=== PATIENT | male | born 1955 | race Caucasian/White ===

== ENCOUNTER 2023-12-03 19:41 | Inpatient (IN) | payer MEDICARE, OTHER, SELFPAY ==
[2023-12-03] VITALS (10 sets, daily range): BP systolic 118–143; BP diastolic 61–77; BMI 35.6; BMI 35.1
--- NOTE | 2023-12-03 15:20 | ED.GENMED ---
History of Present Illness
General
Chief Complaint: Musculo-Skeletal Complaint
Time Seen by Provider: 12/03/23 15:03
Travel History
Have you had any contact with someone who has COVID-19?: No
Do you have any symptoms of coronavirus? Fever > 100 degrees, chills, cough, shortness of breath, sore throat, loss of taste or smell, muscle aches, or headache?: No
History of Present Illness
History of Present Illness:
68-year-old male with history of diet-controlled diabetes, atrial fibrillation on Eliquis, and hypertension presents to the emergency department for evaluation of a nonhealing wound to the left second toe. Has had a wound to both the dorsal and
plantar surfaces for several months, saw his fisheries specialist today and was referred to the emergency department for potential surgical management. Patient reports exquisite pain however he does have a history of lower extremity neuropathy.
Denies any fevers or chills. Was on an antibiotic recently, uncertain what this was.
Past History
Past History
ED Past Medical History: Arrthythmia, GERD, HTN, NIDDM and Other (diverticulitis)
ED Past Surgical History: Appendectomy and Bowel resection (Sigmoid resection)
Patient has exhibited threatening behavior?: No
Social History
Tobacco: Non-smoker
Alcohol: Daily (Vodka 2-3 shots)
Drug: None
Personal:
Living: with family
Employment: Employed
Family History
Family History: Other (Nonsignificant)
Review of Systems
Review of Systems
Allergies reviewed?: Yes
All Other Systems: ROS reviewed and negative except as documented in HPI and ROS
Phy Exam
Physical Exam
Physical Exam:
GEN: Well appearing, NAD, WDWN
HEENT: Oral mucosa moist, no scleral icterus
Cardiac: Regular rate
Lung: No respiratory distress, no tachypnea
MSK: No gross deformity or injuries
Skin: Good color, no pallor or jaundice, no rashes. Open wound to L 2nd toe on dorsal surface, stage II, diffuse digital erythema/swelling noted. Plantar surface wound stage IV with exposed flexor tendon
Neuro: AO x3, moves all extremities freely
Psych: Calm, cooperative
Course
Orders/Labs/Results
Orders:
Orders
12/03/23 14:11
CR Foot - Left 2 Views Urgent
Comment:
Reason For Exam: TOE INFECTION
12/03/23 15:19
Cefepime HCl [Maxipime] 1,000 mg IV NOW STA
12/03/23 15:32
Basic Metabolic Panel Urgent
CRP [C-Reactive Protein] Urgent
Complete Blood Count/With Diff Urgent
Blood Culture Q30M
JANET Source: Blood/Venous
Specimen Description:
Blood Culture Q30M
JANET Source: Blood/Venous
Specimen Description:
12/03/23 15:41
HYDROmorphone [Dilaudid] 0.5 mg .ROUTE .STK-MED ONE
HYDROmorphone [Dilaudid] 0.5 mg IV NOW STA
Sterile Water [Sterile Water For Injection] 10 ml .ROUTE .STK-MED ONE
12/03/23 15:43
Vancomycin [Vancocin] 2,000 mg 0.9% Sodium Chloride 500 ml [Nss] 500 ml IV NOW
Abnormal Lab Results
12/03/23
15:32
RBC 4.32 L 10^6/uL
(4.70-6.10)
MCV 94.9 H fL
(80.0-94.0)
MCH 32.4 H pg
(27.0-31.0)
Absolute Monos (auto) 0.9 H 10^3/uL
(0.1-0.6)
Monocytes % 9.5 H %
(1.7-9.3)
Chloride 96 L mmol/L
(98-107)
BUN 21 H mg/dl
(9-20)
Glucose 131 H mg/dl
(70-99)
C-Reactive Protein 37.00 H mg/L
(0.0-10.00)
12/03/23 15:32
12/03/23 15:32
Vital Signs
Initial and Last Documented VS:
Initial Vital Signs
Temp Pulse Resp BP Pulse Ox
98.3 F 58 18 131/65 99
12/03/23 13:45 12/03/23 13:45 12/03/23 13:45 12/03/23 13:45 12/03/23 13:45
Last Documented Vital Signs
Temp Pulse Resp BP Pulse Ox
98.3 F 61 18 125/70 95
12/03/23 13:45 12/03/23 15:35 12/03/23 15:35 12/03/23 16:00 12/03/23 16:15
MDM/Problems Addressed
MDM/Problems Addressed:
68 yo male presents with worsening wound to the L 2nd toe, acutely cellulitic with erythema/swelling. MRI from 11/29 confirms osteo of the proximal and mid phalanx. Will be admitted for IV abx and podiatry/surgery consultation
*Critical Care Note
Total Time (30-74mins, 75-104mins- exclusive of procedures): Not Applicable
Update Note
Update Note:
Reviewed MRI from [facility], date of image 11/29/2023, showing marrow edema and evidence for osteomyelitis of the left second toe involving the proximal and middle phalanx and presumably the distal phalanx as well. Reports faxed into the
chart
ED Attending Note
-
Portions of this chart may have been created with voice recognition software.� Occasional wrong word or��sound alike� substitutions may have occurred due to the inherent limitations of voice recognition software.
Discharge Plan
Departure
Patient Disposition: Admit
Date of Disposition: 12/03/23
Time of Disposition: 15:58
Presentation/result/management discussed w/ accepting MD/DO: Hospitalist
Discharge Problem:
Cellulitis of second toe, left, Ulcer of left second toe, Osteomyelitis of second toe of left foot
Prescriptions:
No Action
desloratadine [Clarinex] 5 MG tablet
5 mg PO DAILY
One Daily Men's 50 Plus Memory 1 EACH tablet
1 tab PO DAILY
allopurinol 100 MG tablet
100 mg PO DAILY
metoprolol succinate 100 MG tablet extended release 24 hr
100 mg PO BID
Prevagen
1 cap PO DAILY
zolpidem 5 mg Tablet
5 mg PO HSPRN PRN (Reason: insomnia)
acetaminophen 325 MG tablet
650 mg PO Q6HPRN PRN (Reason: mild pain)
amlodipine 5 mg Tablet
5 mg PO DAILY
Eliquis 5 MG tablet
5 mg PO BID
cyanocobalamin (vitamin B-12) 1,000 mcg Tablet
1,000 mcg PO BID
gabapentin 100 mg Capsule
200 mg PO TID
Referrals:
Radu Rodgers DO [Family Provider] -
Interventions
Interventions:
*Risk Screen - Suicide Last Done: 12/03/23 15:17
*General Assessment Last Done: 12/03/23 15:17
*Neglect/Abuse Screening Last Done: 12/03/23 15:17
ED- Fall Risk Assessment Last Done: 12/03/23 15:19
*ED COVID-19 Vaccine History Last Done: 12/03/23 15:17
ED-Musculoskeletal Assessment Last Done: 12/03/23 15:18
[2023-12-03 15:41] LABS: % Basophils 0.6 % (0-2); % Eosinophils 2.7 % (0-6); % Immature Granulocytes 0.3 % (0-0.5); % Lymphocytes 32.9 % (20.5-51.1); % Monocytes 9.5 % (1.7-9.3); Absolute Basophils 0.1 10^3/uL (0-0.2); Absolute Eosinophils 0.3 10^3/uL (0-0.7); Absolute Lymphocytes 3.1 10^3/uL (1.2-3.4); Absolute Monocytes 0.9 10^3/uL (0.1-0.6); Absolute Neutrophils 5.1 10^3/uL (1.4-6.5); Mean Corp Hgb Conc. 34.1 g/dL (33.0-37.0); Mean Corpuscular Hgb 32.4 pg (27.0-31.0); Mean Corpuscular Volume 94.9 fL (80.0-94.0); Mean Platelet Volume 9.2 fL (7.4-10.4); Nucleated Red Blood Cells % 0 % (-); Platelet Count 346 10^3/uL (130-400); Red Blood Cell Count 4.32 10^6/uL (4.70-6.10); Red Cell Dist. Width 12.2 % (11.5-14.5); White Blood Cell Count 9.5 10^3/uL (4.8-10.8)
[2023-12-03] MEDS: DILAUDID 0.5 MG IV (15:42)
[2023-12-03] MEDS: MAXIPIME 1000 MG IV ×2 (15:42→23:55)
[2023-12-03 15:53] LABS: Blood Urea Nitrogen 21 mg/dl (9-20); Calcium 9.8 mg/dl (8.4-10.2); Carbon Dioxide 30 mmol/L (22-30); Chloride 96 mmol/L (98-107); Estimated Creatinine Clearance 96 ml/min; Glucose 131 mg/dl (70-99); Potassium 3.9 mmol/L (3.5-5.1); Sodium 137 mmol/L (135-145); eGFR > 60.00
[2023-12-03] MEDS: VANCOCIN 540 MG IV (15:55)
--- NOTE | 2023-12-03 17:38 | HPS.HSE ---
Family Physician
-
Family Physician: Radu Rodgers
Chief Complaint
-
Left Second Toe Wound
History of Present Illness
68M history of diet-controlled diabetes, atrial fibrillation on Eliquis, diabetic neuropathy and hypertension p/w nonhealing wound left second toe progressive several months, saw his marketing programs specialist and was referred to the emergency department
for potential surgical management.� Denies any fevers or chills.� VSS. Labs unremarkable. Per reports, outpatient MRI imaging from [place] noted osteomyelitis of left 2nd toe.
Medical History
Past Medical History
Past Medical History: Reports Other (as above)
Past Surgical History: Reports Other (reports hx bowel resection diverticulitis and nasal cancer resection with plastic reconstruction)
Social History
Tobacco: Non-smoker
Alcohol: Daily (2-3 vodka shots a day)
Drug: None
Personal:
Living: With Family
Employment: Employed
Family History
Family History: Not pertinent (reviewed)
Allergies / Home Medications
Allergies reflects when Allergies were last updated in [facility].
Home Medications with original date entered in [facility]
Allergy/Medication List:
Allergies
Allergy/AdvReac Type Severity Reaction Status Date / Time
Iodinated Contrast Media Allergy chest Verified 07/24/23 13:20
[IV Dye, Iodine Containing] tightness
pollen extracts Allergy Itchy Verified 07/24/23 13:20
Eyes,
rhinitis
Home Medications
desloratadine 5 mg tablet (Clarinex) 5 mg PO DAILY Allergies 06/21/10
zraopcii-rflu-uoyit acid 400 mcg-lycopene 600 mcg-ginkgo 120 mg tablet (One Daily Men's 50 Plus Memory Support) 1 tab PO DAILY Supplement 09/20/19
allopurinol 100 mg tablet 100 mg PO DAILY Gout 01/07/21
metoprolol succinate 100 mg tablet,extended release 24 hr 100 mg PO BID Blood pressure 05/12/21
Prevagen 1 cap PO DAILY Supplement 08/07/21
acetaminophen 325 mg tablet 650 mg PO Q6HPRN PRN mild pain 07/23/23
zolpidem 5 mg tablet 5 mg PO HSPRN PRN insomnia 07/23/23
amlodipine 5 mg tablet 5 mg PO DAILY Blood Pressure 07/24/23
apixaban 5 mg tablet (Eliquis) 5 mg PO BID Blood Clot Prevention/Tx 07/25/23
cyanocobalamin (vitamin B-12) 1,000 mcg tablet 1,000 mcg PO BID 12/03/23
gabapentin 100 mg capsule 200 mg PO TID 12/03/23
Review of Systems
-
A 12 point ROS was completed and negative except as noted: Yes
Constitutional: Reports Other (as below)
Physical Exam
Vital Signs
Vital Signs
Temp Pulse Resp BP Pulse Ox
98.3 F 61 18 125/70 95
12/03/23 13:45 12/03/23 15:35 12/03/23 15:35 12/03/23 16:00 12/03/23 16:15
Physical Exam
General: Other (as below)
Laboratory Results
-
12/03/23 15:32
12/03/23 15:32
Impression/Plan
-
ROS
General: Denies fever chills night sweats unexpected weight loss
Neuro: Denies seizure shaking loss of consciousness dizziness vertigo
Psych: denies depression hallucinations confusion manic episodes
Endocrine: Denies polyuria polydipsia polyphagia heat/cold intolerance
HEENT: Denies blindness visual disturbances epistaxis
Pulmonary: denies coughing hemoptysis sneezing sob dyspnea on exertion
Cardiovascular: denies chest pain palpitations leg swelling
Hematology: denies signs symptoms of anemia easy bruising/bleeding
Gastrointestinal: denies nausea vomiting diarrhea constipation hematemesis hematochezia melena
Genito-Urinary: denies retention incontinence dysuria
Musculoskeletal: reports left 2nd toe pain
Dermatology: denies rash laceration bruising
Physical Exam
General: No pallor, cyanosis, or jaundice.
HEENT: Throat clear. PERRLA Normocephalic atraumatic
NECK: Supple. No JVD Carotid Bruits
RESPIRATORY: Lungs clear to auscultation. No crackles wheezes stridor
CVS: S1, S2 normal. RRR. No murmur, rub or gallop.
ABDOMEN: Soft, non-tender. No distension. BS+/normal.
EXTREMITIES: No peripheral cyanosis or edema. Lt 2nd toe well bandaged clean dry intact
WIND ENERGY PROJECT MANAGER: AOx3. No focal deficits.
IMPRESSION:
68M history of diet-controlled diabetes, atrial fibrillation on Eliquis, diabetic neuropathy and hypertension p/w nonhealing wound left second toe progressive several months, saw his marketing programs specialist and was referred to the emergency department
for potential surgical management.� Denies any fevers or chills.� VSS. Labs unremarkable. Per reports, outpatient MRI imaging from [place] noted osteomyelitis of left 2nd toe.
PLAN:
# Left second toe osteomyelitis
Podiatry eval appreciated n.p.o. after midnight for OR surgical intervention
Follow blood cultures
Continue empiric vancomycin and cefepime for now
tylenol prn pain, oxycodone prn mod severe pain
#A-fib
Continue home metoprolol with holding parameters
Hold Eliquis at this time for surgical intervention as above, last dose a.m. 12/03
#Diabetes diet controlled
#Diabetic neuropathy
Continue home gabapentin
Follow-up A1c
Low-dose sliding scale
#Hypertension
Continue amlodipine with holding parameters
Metoprolol as above
#Gout
Continue home allopurinol
DVT prophylaxis SCDs
Full code
Meds reconciled and resumed as appropriate
I spent a total of 76 minutes with the patient or on the floor. More than 50% of this time involved counseling and coordination of care.
[2023-12-03] MEDS: ROXICODONE 5 MG PO (20:29)
--- NOTE | 2023-12-03 21:55 | PHA.VAN.IN ---
Assessment
- Assessment
Renal Function: Appears similar to baseline
Concomitant Antimicrobials: CEFEPIME
- Previous Dosing Experience
Previous Regimen: NONE
AUC Dosing Plan
- Dosing Variables
Dosing Weight (kg): 120.8
Dosing CrCl (ml/min): 96
Vd coefficient (L/kg): 0.6
- Empiric Dosing
Initial / Loading Dose: 2GM
Maintenance Regimen: 1250MG IV Q12H
Estimated AUC (mcg*h/mL): 436
Estimated Peak (mcg*h/mL): 27.1
Estimated Trough (mcg/ml): 11.2
Estimated Half Life (H): 8.2
Pharmacokinetics Vancomycin I
- -
Patient Age: 68
Patient Sex: Male
Vancomycin Day #: 1
Indication: Skin And Soft Tissue (NON-HEALING TOE WOUND/OM)
Requesting Provider: PENG
Height / Weight:
Height 6 ft 1 in
Actual Weight 120.769 kg
Pertinent Past Medical History: DM
- Vital Signs / Lab Results
Temp Pulse Resp BP Pulse Ox
98.3 F 63 18 138/72 98
12/03/23 13:45 12/03/23 17:40 12/03/23 17:40 12/03/23 19:00 12/03/23 19:04
Lab Results - Hematology
12/03/23
15:32
WBC 9.5
Lab Results - Chemistry
12/03/23
15:32
BUN 21 H
Creatinine 1.0
Estimated Creat Clear 96
Microbiology Results
12/03/23 18:53 Nasal Screen MRSA (PCR) - Final
Nose MRSA not detected - performed by PCR methodology.
[2023-12-03 22:24] LABS: Glucose - Point of Care 162 mg/dl (70-99)
[2023-12-03] MEDS: NEURONTIN 200 MG PO (22:56)
[2023-12-03] MEDS: AMBIEN 5 MG PO (22:56)
[2023-12-03] MEDS: VITAMIN B-12 1000 MCG PO (22:58)
[2023-12-03] MEDS: TOPROL XL 100 MG PO (22:58)
[2023-12-03] MEDS: STERILE WATER FOR INJECTION 10 ML IV (23:56)
[2023-12-04] VITALS (14 sets, daily range): BP systolic 106–147; BP diastolic 59–73
[2023-12-04] MEDS: ROXICODONE 5 MG PO ×3 (00:31→16:04)
[2023-12-04 05:59] LABS: Glucose - Point of Care 115 mg/dl (70-99)
[2023-12-04] MEDS: NOVOLOG FLEXPEN-LOW RESISTANCE SC ×2 (06:07→17:55)
[2023-12-04] MEDS: VANCOCIN 275 MG IV ×2 (06:14→17:05)
[2023-12-04 07:43] LABS: Blood Urea Nitrogen 16 mg/dl (9-20); Calcium 8.7 mg/dl (8.4-10.2); Carbon Dioxide 29 mmol/L (22-30); Chloride 102 mmol/L (98-107); Estimated Creatinine Clearance 86 ml/min; Glucose 118 mg/dl (70-99); Magnesium 1.5 mg/dl (1.6-2.3); Potassium 3.6 mmol/L (3.5-5.1); Sodium 135 mmol/L (135-145); eGFR > 60.00
[2023-12-04] MEDS: CLARITIN 10 MG PO (07:47)
[2023-12-04] MEDS: NEURONTIN 200 MG PO ×3 (07:47→21:53)
[2023-12-04] MEDS: NORVASC 5 MG PO (07:47)
[2023-12-04] MEDS: ZYLOPRIM 100 MG PO (07:47)
[2023-12-04] MEDS: VITAMIN B-12 1000 MCG PO ×2 (07:47→21:28)
[2023-12-04] MEDS: MAXIPIME 1000 MG IV ×2 (07:49→15:59)
[2023-12-04] MEDS: STERILE WATER FOR INJECTION 10 ML IV ×2 (07:49→15:59)
--- NOTE | 2023-12-04 07:54 | W.PN.HOSP.TC ---
Today's Communication/Plan
-
NPO for OR surgical intervention Left 2nd toe osteo as per podiatry
cont glycemic control
empiric abx
Assessment / Plan
Assessment / Plan
Physical Exam
General: No pallor, cyanosis, or jaundice.
HEENT: Throat clear. PERRLA Normocephalic atraumatic
NECK: Supple. No JVD Carotid Bruits
RESPIRATORY: Lungs clear to auscultation. No crackles wheezes stridor
CVS: S1, S2 normal. RRR.� No murmur, rub or gallop.
ABDOMEN: Soft, non-tender. No distension. BS+/normal.
EXTREMITIES: No peripheral cyanosis or edema.� Lt 2nd toe well bandaged clean dry intact
INTERNATIONAL MARKETING COORDINATOR: AOx3. No focal deficits.
IMPRESSION:
68M history of diet-controlled diabetes, atrial fibrillation on Eliquis, diabetic neuropathy and hypertension p/w nonhealing wound left second toe progressive several months, saw his security operations specialist and was referred to the emergency department
for potential surgical management.� Denies any fevers or chills.� VSS.� Labs unremarkable.� Per reports, outpatient MRI imaging from [place] noted osteomyelitis of left 2nd toe.
PLAN:
# Left second toe osteomyelitis
Podiatry eval appreciated n.p.o. for OR surgical intervention later tonight
Follow blood cultures
Continue empiric vancomycin and cefepime for now
tylenol prn pain, oxycodone prn mod severe pain
#A-fib
Continue home metoprolol with holding parameters
Hold Eliquis at this time for surgical intervention as above, last dose a.m. 12/03
#Diabetes diet controlled
#Diabetic neuropathy
Continue home gabapentin
Follow-up A1c 6.5
Low-dose sliding scale
#Hypertension
Continue amlodipine with holding parameters
Metoprolol as above
#Gout
Continue home allopurinol
DVT prophylaxis SCDs
Full code
I spent a total of� 50 � minutes with the patient or on the floor. More than 50% of this time involved counseling and coordination of care.
Anticipated Discharge: 24 - 48 hours
Subjective/Interval History
-
Date of Service: December 04, 2023
No acute distress appears comfortable at this time.
Objective Data
-
Labs:
Laboratory Results
12/04/23
06:26
WBC Pending
Hgb Pending
Hct Pending
Plt Count Pending
Sodium 135
Potassium 3.6
Chloride 102
Carbon Dioxide 29
BUN 16
Creatinine 1.1
Glucose 118 H
Calcium 8.7
Vital Signs:
Vital Signs
Temp Pulse Resp BP Pulse Ox
98.2 F 56 17 123/67 96
12/04/23 07:00 12/04/23 07:00 12/04/23 07:00 12/04/23 07:00 12/04/23 07:00
I&O
12/03/23 12/04/23 12/05/23
06:59 06:59 06:59
Intake Total 480 / 480
Balance 480 / 480
[2023-12-04 08:25] LABS: Hematocrit 35.1 % (39.0-52.0); Mean Corp Hgb Conc. 34.2 g/dL (33.0-37.0); Mean Corpuscular Hgb 32.8 pg (27.0-31.0); Mean Corpuscular Volume 95.9 fL (80.0-94.0); Platelet Count 304 10^3/uL (130-400); Red Blood Cell Count 3.66 10^6/uL (4.70-6.10); Red Cell Dist. Width 12.4 % (11.5-14.5); White Blood Cell Count 7.3 10^3/uL (4.8-10.8)
--- NOTE | 2023-12-04 08:40 | W.CS.POD ---
Consult Summary - Podiatry
-
68 year old male, well known to our practice, admitted through the ER yesterday with ulceration and cellulitis of the left second toe. The patient developed this wound over 2 months ago after wearing a pair of ill-fitting boots. He was first seen
in the office in early October, given a 10 day course of Cephalexin, and the wound stabilized over time. Last seen in the office on 11/19/23, the wound was found to be tracking to bone and subsequently an MRI of the foot was ordered and performed on
09/29/24. In the interim the patient's mother , the condition of the toe deteriorated, and the family directed him to the wound care center where he was evaluated and sent to the ER.
VSS. Afebrile.
No leukocytosis.
XRAY, left foot 12/03/23: There is soft tissue swelling involving the left second toe. No evidence of soft tissue air. No evidence for bony destruction of the left second toe, with no findings to suggest osteomyelitis.
MRI, left foot ([facility]) 11/29/23: Ulceration along the dorsal aspect of the second toe PIP joint with osteomyelitis involving the middle phlanx, majority of the proximal phalanx, and potentially the distal phalanx.
Assessment:
Infected diabetic ulceration, cellulitis and suspected osteomyelitis of the left second toe.
Type 2 diabetes mellitus with peripheral neuropathy.
Paroxysmal Atrial Fibrillation on Eliquis.
Plan:
Exposed bone dorsally and tendon plantarly of the left second toe. LE vascular status otherwise adequately intact.
Debridement/amputation of the infected left second toe necessary, with possible need for partial ray resection to expedite closure.
Anticipate taking patient to OR this evening.
NPO after 11am today.
[2023-12-04] MEDS: TOPROL XL 100 MG PO ×2 (09:07→21:27)
[2023-12-04 09:42] LABS: Glycohemoglobin (HgbA1c) 6.5 % (4.0-5.6)
--- NOTE | 2023-12-04 09:58 | WOUNDNOTE ---
L 2ND TOE DORSAL
--- NOTE | 2023-12-04 10:00 | WOUNDNOTE ---
[facility] RN note: Patient admitted with osteomyelitis of L 2nd toe.
See H&P for complete history.
PMH: NIDDM,HTN, A Fib, gout, skin cancer-with facial plastic surgery.
Wound Location and type/assessment: Patient admitted with: L 2nd toe wound + osteomyelitis, swelling and redness, no odor or drainage. + palpable pedal pulse. Reviewed Dr. Hopkins's note, for amputation of toe this evening.
Appetite: Good, NPO after breakfast.
Pressure redistribution devices in place: Accumax, patient turns self.
Plan: dry dressing in use, will follow peripherally and assist podiatry as needed.
--- NOTE | 2023-12-04 10:53 | PHA.VAN.FU ---
Vancomycin Assessment / Plan
- Assessment
Renal Function: Stable
WBC's are: WNL
In the past 24 hrs, patient has been: Afebrile
Concomitant Antimicrobials: cefepime
- Dosing Plan
Continue: Vanc 1250mg Q12H
- Monitoring Plan
No level(s) ordered at this time: consider levels in next few days
- Follow Up
Pharmacy will continue to follow.
Vancomycin Follow UP
- -
Patient Age: 68
Patient Sex: Male
Vancomycin Day #: 2
Indication: Skin And Soft Tissue
Requesting Provider: Dr. Dixon
Pertinent Antimicrobial Allergies:
no pertinent antibiotic allergies
Height / Weight:
Height 6 ft 1 in
Actual Weight 120.769 kg
Pertinent Past Medical History: DM, BMI ~35
- Vital Signs / Lab Results
Temp Pulse Resp BP Pulse Ox
98.2 F 56 17 123/67 96
12/04/23 07:00 12/04/23 09:07 12/04/23 07:00 12/04/23 09:07 12/04/23 07:00
Lab Results - Hematology
12/03/23 12/04/23
15:32 06:26
WBC 9.5 7.3
Lab Results - Chemistry
12/03/23 12/04/23
15:32 06:26
BUN 21 H 16
Creatinine 1.0 1.1
Estimated Creat Clear 96 86
Microbiology Results
12/03/23 18:53 Nasal Screen MRSA (PCR) - Final
Nose MRSA not detected - performed by PCR methodology.
[2023-12-04 11:33] LABS: Glucose - Point of Care 200 mg/dl (70-99)
[2023-12-04] MEDS: NOVOLOG FLEXPEN-LOW RESISTANCE 2 UNITS SC (12:28)
--- NOTE | 2023-12-04 13:13 | CM ---
Reviewed chart, met with patient to obtain information for assessment, however he was asleep therefore called his who answered and stated that she could talk.
She stated that patient lives with her in a two story home with one step to enter. There are 13 steps between each flight. Patient has a torn rotator cuff and has difficulty bathing and dressing so his is assisting him with all ADLs.
Patient's stated that she does all the shopping, cooking, cleaning and laundry as well as chief accountant. She drives and can get patient to his appointments.
Patient uses a cane to assist with his ambulation. He has a cpap that he wears at night. He also has a cane, walker and a w/c that he does not use but is there if he needs it.
He has never been to a SNF. He has never had VN services but if indicated patient's stated that she would like them through [place].
Patient has a prescription plan and uses the [facility] in [place] for all of his medications.
His PCP is Dr. Radu Palm.
Patient's was made aware that indication may be for SNF after sx. She stated that he may not initially be agreeable but will most likely be cooperative. She stated that she will select facilities if indicated. Will make referrals if needed.
Patient's stated that patient has been depressed lately as his mother just passed and he has had so many health issues. Patient's denied that he is expressing any suicidal ideation but has been very depressed. Will update attending.
Plan: Case management will continue to follow and assist with discharge planning. SNF vrs home with VN services.
[2023-12-04] MEDS: MAGNESIUM SULFATE 50 IV (13:48)
[2023-12-04 16:41] LABS: Glucose - Point of Care 113 mg/dl (70-99)
[2023-12-04 17:51] LABS: Glucose - Point of Care 105 mg/dl (70-99)
--- NOTE | 2023-12-04 20:13 | W.PN.UPDATE ---
Update Note
Progress Note Update
Patient consent for procedure to address osteomyelitis and infected, necrotic, non-healing wounds of the left second toe was obtained at bedside. The patient understands the benefits, risks and possible complications of the proposed procedure, as
well as the potential need for additional surgery.
Procedure: Left second toe amputation
Clean bone margin sent to path. Infected bone sent for path and micro.
Proximal bone and soft tissues viable. Surgical cure likely.
Resume diet
NWB left foot for 24 hours.
Wedged surgical shoe ordered.
PO XRAYS ordered.
[2023-12-04] MEDS: DILAUDID 0.5 MG IV (20:15)
[2023-12-04 22:05] LABS: Glucose - Point of Care 125 mg/dl (70-99)
[2023-12-05 00:11] LABS: Glucose - Point of Care 146 mg/dl (70-99)
[2023-12-05] MEDS: NOVOLOG FLEXPEN-LOW RESISTANCE SC ×4 (00:11→16:44)
[2023-12-05] MEDS: MAXIPIME 1000 MG IV (00:12)
[2023-12-05] MEDS: STERILE WATER FOR INJECTION 10 ML IV (00:12)
[2023-12-05] MEDS: ROXICODONE 5 MG PO ×3 (00:27→09:44)
[2023-12-05 00:29] VITALS: BP 123/67
[2023-12-05 03:40] VITALS: BP 121/67
[2023-12-05 05:57] LABS: Glucose - Point of Care 135 mg/dl (70-99)
[2023-12-05 06:42] LABS: Hematocrit 34.6 % (39.0-52.0); Hemoglobin 11.9 g/dL (13.0-18.0); Mean Corp Hgb Conc. 34.4 g/dL (33.0-37.0); Mean Corpuscular Hgb 33.1 pg (27.0-31.0); Mean Corpuscular Volume 96.1 fL (80.0-94.0); Mean Platelet Volume 9.5 fL (7.4-10.4); Platelet Count 276 10^3/uL (130-400); Red Cell Dist. Width 12.3 % (11.5-14.5); White Blood Cell Count 7.3 10^3/uL (4.8-10.8)
--- NOTE | 2023-12-05 07:11 | W.PN.HOSP.TC ---
Today's Communication/Plan
-
Discharge when seen and cleared by Podiatry
Assessment / Plan
Assessment / Plan
Physical Exam
General: No pallor, cyanosis, or jaundice.
HEENT: Throat clear. PERRLA Normocephalic atraumatic
NECK: Supple. No JVD Carotid Bruits
RESPIRATORY: Lungs clear to auscultation. No crackles wheezes stridor
CVS: S1, S2 normal. RRR.� No murmur, rub or gallop.
ABDOMEN: Soft, non-tender. No distension. BS+/normal.
EXTREMITIES: No peripheral cyanosis or edema.� Lt foot bandage clean dry intact
BOARD SETTER: AOx3. No focal deficits.
IMPRESSION:
68M history of diet-controlled diabetes, atrial fibrillation on Eliquis, diabetic neuropathy and hypertension p/w nonhealing wound left second toe progressive several months, saw his oncology rep specialist and was referred to the emergency department
for potential surgical management.� Denies any fevers or chills.� VSS.� Labs unremarkable.� Per reports, outpatient MRI imaging from [place] noted osteomyelitis of left 2nd toe.
PLAN:
# Left second toe osteomyelitis
Podiatry eval appreciated s/p amputation 12/04
blood cultures NGTD
completed empiric vancomycin and cefepime following amputation likely curative
tylenol prn pain, oxycodone prn mod severe pain
#A-fib
Continue home metoprolol with holding parameters
Eliquis held for surgical intervention as above, last dose a.m. 12/03
#Diabetes diet controlled
#Diabetic neuropathy
Continue home gabapentin
Follow-up A1c 6.5
Low-dose sliding scale
#Hypertension
Continue amlodipine with holding parameters
Metoprolol as above
#Gout
Continue home allopurinol
DVT prophylaxis SCDs
Full code
Medically stable for discharge home with outpatient follow up recommendations
Total Time Preparing Discharge ___50____ minutes including examination of the patient, summary of the hospital stay, instructions for continuing care to all relevant caregivers; and preparation of discharge records, prescriptions, and referral
forms if necessary.
Anticipated Discharge: Today
Subjective/Interval History
-
Date of Service: December 05, 2023
Seen and examined at bedside in mild moderate distress due pain at amputation site.
Objective Data
-
Labs:
Laboratory Results
12/05/23
06:22
WBC 7.3
Hgb 11.9 L
Hct 34.6 L
Plt Count 276
Sodium Pending
Potassium Pending
Chloride Pending
Carbon Dioxide Pending
BUN Pending
Creatinine Pending
Glucose Pending
Calcium Pending
Vital Signs:
Vital Signs
Temp Pulse Resp BP Pulse Ox
97.6 F 67 18 121/67 96
12/05/23 03:40 12/05/23 03:40 12/05/23 03:40 12/05/23 03:40 12/05/23 03:40
I&O
12/04/23 12/05/23 12/06/23
06:59 06:59 06:59
Intake Total 480 / 480 340 / 340
Output Total 2175 / 2175
Balance 480 / 480 -1835 / -1835
[2023-12-05 07:12] LABS: Blood Urea Nitrogen 15 mg/dl (9-20); Calcium 9.1 mg/dl (8.4-10.2); Carbon Dioxide 30 mmol/L (22-30); Chloride 98 mmol/L (98-107); Estimated Creatinine Clearance 86 ml/min; Glucose 133 mg/dl (70-99); Magnesium 1.8 mg/dl (1.6-2.3); Sodium 135 mmol/L (135-145); eGFR > 60.00
[2023-12-05 07:17] LABS: Potassium 3.9 mmol/L (3.5-5.1)
--- NOTE | 2023-12-05 07:45 | WOUNDNOTE ---
[facility] RN note: Confirmed [facility] consult order with Dr. Hopkins for L Darco ortho wedge shoe for patient. t/c patient's room, patient stated he was shoe size 11. t/c Survey InterviewerClerk Dodd who confirmed she will fax the order to [facility].
[2023-12-05 07:57] VITALS: BP 130/71
[2023-12-05] MEDS: VITAMIN B-12 1000 MCG PO (08:00)
[2023-12-05] MEDS: CLARITIN 10 MG PO (08:00)
[2023-12-05] MEDS: TOPROL XL 100 MG PO (08:00)
[2023-12-05] MEDS: ZYLOPRIM 100 MG PO (08:00)
[2023-12-05] MEDS: NEURONTIN 200 MG PO ×2 (08:00→14:47)
[2023-12-05] MEDS: NORVASC 5 MG PO (08:01)
[2023-12-05 08:26] LABS: Glucose - Point of Care 119 mg/dl (70-99)
[2023-12-05] MEDS: TYLENOL 1000 MG PO ×2 (09:44→14:47)
[2023-12-05 11:23] VITALS: BP 147/79
[2023-12-05 12:14] LABS: Glucose - Point of Care 164 mg/dl (70-99)
[2023-12-05] MEDS: NOVOLOG FLEXPEN-LOW RESISTANCE 1 UNITS SC (12:35)
[2023-12-05] MEDS: ROXICODONE 10 MG PO (14:47)
[2023-12-05 15:55] VITALS: BP 147/76
[2023-12-05 16:44] LABS: Glucose - Point of Care 133 mg/dl (70-99)
--- NOTE | 2023-12-05 17:13 | CM ---
Received TT from attending that patient needs a w/c. Met with patient who stated that he needs to get home as his mother's is tomorrow and he has to go. Attending will discharge him to home.
Placed a call to patient's who answered and stated that she could talk. She was offered VN services but she declined. Patient's stated that patient needs a w/c. Placed a call to [facility] and spoke with Willem [phone] who stated that,
after hearing patient's dx and sx, patient would most likely have to rent one as he will not get one approved through the insurance. Willem stated that he does not have any w/c for rent but advised to try [facility]. Placed a call to [facility]
and spoke with kiosk sales representative who stated that they have w/c. Advised patient's of this and she stated that she has a w/c (2 w/c) however she needs one where the leg rest will go up. [facility] denied having this. Placed a call to [facility]
but they were closed. Placed a call to [facility] but no one answered.
Discussed with CM RN coworker who stated that a stool or a lawn chair would work as long as patient keeps his leg elevated. Relayed this to patient's and she stated that she would do this as she has a w/c and a stool and the possibility of
finding a w/c with the dimensions patient needs are slim.
Patient's expressed appreciation for efforts however stated that it would be easier to use a stool. She asked if patient received a psych consult. I advised her to discuss the course of patient's admission with RN during discharge and she was
agreeable.
Plan: Case management will continue to follow and assist with discharge planning. Home so that patient can go to his mother's .
--- NOTE | 2023-12-05 17:41 | W.DCSUMMARY ---
Discharge Summary
Discharge Data
Date of Admission: 12/03/23
Date of Discharge: 12/05/23
-
Pending Results: Yes
Additional Pending Results:
pathology results to be followed with Podiatry
Hospital Course
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
for potential surgical management.� Denied any fevers or chills.� VSS.� Labs unremarkable.� Per reports, outpatient MRI imaging from [place] noted osteomyelitis of left 2nd toe. Left second toe osteomyelitis, Podiatry evaluated and performed
amputation 12/04. Blood cultures NGTD. Empiric vancomycin and cefepime were completed following amputation, likely curative. Medically stable, patient was discharged home with outpatient follow up recommendations.
Discharge Plan
-
Patient Disposition: Home (Routine Discharge)
Discharge Diagnosis/Procedures: Left 2nd toe Osteomyelitis status post amputation, Mild Anemia
Condition: Fair
Diet: Regular
Activity: With Walker and No strenuous activity
Driving Restrictions: Not until seen by your Dr
Bathing Restrictions: OK to Shower
Blood Work: Please repeat CBC with primary care provider in 1 week of discharge
Activity Restrictions/Additional Instructions:
Weight bear in L heel wedge surgical shoe only ([employer] ortho wedge shoe).
Local care L 2nd toe amp site as per Dr. Hopkins's instructions.
Follow up with [facility] man Dr. Hopkins.
Please follow up with primary care provider in 1 week of discharge.
continue with Tylenol 1000 mg three times a day for 1 week
Oxycodone 10 mg three times a day as needed for severe pain has been prescribed 1 week supply
Please take medications as prescribed/recommended and follow up with your primary care provider and/or other healthcare provider involved in your care for refills and/or further adjustments to your medication regimen as necessary.
Instructions: Amputation of the Foot or Toe (DC)
Referrals:
Jason Hopkins DPM [Specified Professional Personl] -
Radu Rodgers DO [Family Provider] - in one week
Prescriptions:
New
acetaminophen [Pain Relief ES (acetaminophen)] 500 mg Tablet
1,000 mg PO TID 7 Days Qty: 42 0RF
oxycodone 10 mg Tablet
10 mg PO Q8HPRN PRN (Reason: severe pain) 7 Days Qty: 21 0RF
Continued
desloratadine [Clarinex] 5 MG tablet
5 mg PO DAILY
One Daily Men's 50 Plus Memory 1 EACH tablet
1 tab PO DAILY
allopurinol 100 MG tablet
100 mg PO DAILY
metoprolol succinate 100 MG tablet extended release 24 hr
100 mg PO BID
Prevagen
1 cap PO DAILY
zolpidem 5 mg Tablet
5 mg PO HSPRN PRN (Reason: insomnia)
acetaminophen 325 MG tablet
650 mg PO Q6HPRN PRN (Reason: mild pain)
amlodipine 5 mg Tablet
5 mg PO DAILY
Eliquis 5 MG tablet
5 mg PO BID
Hold Instructions: Resume Eliquis when clear as per Podiatry
cyanocobalamin (vitamin B-12) 1,000 mcg Tablet
1,000 mcg PO BID
gabapentin 100 mg Capsule
200 mg PO TID
Discharge Orders:
Discharge Patient (As Directed); Ordered 12/05/23
Ordered By: Chao Dixon
Discharge Date and Time
Discharge Date/Time: 12/05/23 20:08
--- NOTE | 2023-12-05 19:12 | W.PN.POD ---
Today's Communication
Today's Communication
Patient is stable for discharge from Podiatry standpoint.
Assessment / Plan
-
Assessment:
Infected diabetic ulceration, cellulitis and osteomyelitis of the left second toe.
S/P one day left second toe amputation, surgical site stable and viable.
Type 2 diabetes mellitus with peripheral neuropathy.
Paroxysmal Atrial Fibrillation on Eliquis.
Plan:
Patient is stable for discharge from Podiatry standpoint.
He has his wedge surgical shoe to be worn at all times.
Ambulation with the use of a walker only.
Dressings to be kept clean, dry and intact until patient follows up in the office early next week.
Patient will be attending his mother's tomorrow morning. Precautionary measures and activity restrictions discussed with patient and his .
PO pain management and oral antibiotics RX upon discharge.
Subjective
Chief Complaint
S/P one day left second toe amputation.
Subjective
Patient seen resting comfortably in bed. Left foot pain mild, well controlled with PO analgesics.
Denies fever, chills or sweats. No nausea,vomiting. No chest pain, SOB. No calf pain.
Objective
Temp Pulse Resp BP Pulse Ox
98 F 74 16 147/76 97
12/05/23 15:55 12/05/23 15:55 12/05/23 15:55 12/05/23 15:55 12/05/23 15:55
12/05/23 06:22
12/05/23 06:22
Vital Signs and Lab results were reviewed.
Dressing of the left foot is clean, dry and intact. Minimal post operative bleeding in bandage.
Left 2nd toe amputation site is clean and stable with wound edges well apposed and sutures intact.
Mild post-op edema, no erythema, cellulitis, malodor, discharge or local signs of infection noted.
== END 2023-12-05 20:08 | disposition home or self-care (01) | DRG 617 ==
LOC: 3 WEST ACU 19:41
PROVIDERS: Emergency Medicine; Podiatrist Foot & Ankle Surgery; ADMITTING PHYSICIAN Internal Medicine; EMERGENCY PHYSICIAN Emergency Medicine; FAMILY PHYSICIAN Family Medicine; REFERRING PHYSICIAN Surgery
PROC: 0Y6S0Z0 Detachment at Left 2nd Toe, Complete, Open Approach (ICD-10-PCS; 2023-12-04)
DX: E11.69 Type 2 diabetes mellitus with other specified complication (principal); M86.172 Other acute osteomyelitis, left ankle and foot; E11.42 Type 2 diabetes mellitus with diabetic polyneuropathy; I48.0 Paroxysmal atrial fibrillation; I10 Essential (primary) hypertension; D64.9 Anemia, unspecified; E11.621 Type 2 diabetes mellitus with foot ulcer; M10.9 Gout, unspecified; Z79.01 Long term (current) use of anticoagulants
CPT/HCPCS: 88304; 88311; 73620; 80048; 82962; 83036; 83735; 85025; 85027; 86140; 87040; 87070; 87075; 87205; 87641; 96365; 96366; 96375; 99203; 99284

== ENCOUNTER 2024-02-04 06:16 | Day surgery (SDC) | payer MEDICARE, OTHER, SELFPAY ==
[2024-01-22 10:20] LABS: Hematocrit 36.7 % (39.0-52.0); Hemoglobin 12.2 g/dL (13.0-18.0); Mean Corp Hgb Conc. 33.2 g/dL (33.0-37.0); Mean Corpuscular Hgb 31.4 pg (27.0-31.0); Mean Corpuscular Volume 94.3 fL (80.0-94.0); Mean Platelet Volume 9.7 fL (7.4-10.4); Platelet Count 262 10^3/uL (130-400); Red Blood Cell Count 3.89 10^6/uL (4.70-6.10); Red Cell Dist. Width 12.5 % (11.5-14.5); White Blood Cell Count 6.4 10^3/uL (4.8-10.8)
[2024-01-22 10:58] LABS: Blood Urea Nitrogen 24 mg/dl (9-20); Calcium 9.7 mg/dl (8.4-10.2); Carbon Dioxide 30 mmol/L (22-30); Chloride 101 mmol/L (98-107); Glucose 125 mg/dl (70-99); Potassium 4.1 mmol/L (3.5-5.1); Sodium 138 mmol/L (135-145); eGFR > 60.00
[2024-01-22 12:19] VITALS: BMI 36.0
[2024-02-04] VITALS (10 sets, daily range): BP systolic 114–145; BP diastolic 60–96; BMI 36.0
[2024-02-04] MEDS: CELEBREX 200 MG PO (07:48)
[2024-02-04] MEDS: TYLENOL 1000 MG PO (07:49)
[2024-02-04] MEDS: NORMOSOL-R 1000 IV (07:52)
[2024-02-04 07:56] LABS: Glucose - Point of Care 133 mg/dl (70-99)
[2024-02-04] MEDS: DILAUDID 0.5 MG IV (10:43)
[2024-02-04] MEDS: ROXICODONE 5 MG PO (12:28)
== END 2024-02-04 13:05 | disposition home or self-care (01) ==
LOC: SDS 06:16
PROVIDERS: ATTENDING PHYSICIAN Orthopaedic Surgery Hand Surgery; FAMILY PHYSICIAN Family Medicine; OTHER PHYSICIAN Internal Medicine Cardiovascular Disease
DX: M75.122 Complete rotator cuff tear or rupture of left shoulder, not specified as traumatic (principal); M75.92 Shoulder lesion, unspecified, left shoulder
CPT/HCPCS: 29827; 29826; 36415; 80048; 82962; 85027; 93005; C1713

== ENCOUNTER 2024-04-22 17:43 | Emergency (ER) | payer MEDICARE, OTHER, SELFPAY ==
[2024-04-22 17:44] VITALS: BP 146/69
--- NOTE | 2024-04-22 18:37 | ED.GENMED ---
History of Present Illness
<Aly Ren DO - Last Filed: 04/22/24 20:43>
General
Chief Complaint: Generalized Pain
Time Seen by Provider: 04/22/24 18:00
<WOLF David - Last Filed: 04/22/24 23:34>
General
Source: patient
Exam Limitations: none
Nursing documentation reviewed up to this point in time: agreed with
Travel History
Have you had any contact with someone who has COVID-19?: No
Do you have any symptoms of coronavirus? Fever > 100 degrees, chills, cough, shortness of breath, sore throat, loss of taste or smell, muscle aches, or headache?: No
History of Present Illness
History of Present Illness:
Patient is a 69-year-old male reports several months ago in January() had left rotator cuff surgery and is currently in physical therapy for this. This was done by Dr. Willy Simmons. He presents to the ER today complaining of left-sided neck
pain which started Bud, 5 days ago. Pain is in the left side of his neck is worse with any type of movement. He does feel that he slept wrong. He did see orthopedics and gave him Robaxin is not relieving his symptoms. He also has hydrocodone
which also is not helping. In addition to neck pain he started with headache 3 days ago this was gradual in nature but he reports his head feels' it is going to blow up with pressure.'
He denies any associated numbness tingling weakness to left upper extremity. He denies any nausea vomiting blurred vision.
He last took hydrocodone at 230 and Robaxin at 3:30 PM
Past History
<WOLF David - Last Filed: 04/22/24 23:34>
Past History
ED Past Medical History: Arrthythmia, GERD, HTN, NIDDM and Other (diverticulitis)
ED Past Surgical History: Appendectomy and Bowel resection (Sigmoid resection)
Patient has exhibited threatening behavior?: No
Social History
Tobacco: Non-smoker
Alcohol: Daily (Vodka 2-3 shots)
Drug: None
Personal:
Living: with family
Employment: Employed
Family History
Family History: Other (Nonsignificant)
Review of Systems
<WOLF David - Last Filed: 04/22/24 23:34>
Review of Systems
Allergies reviewed?: Yes
All Other Systems: ROS reviewed and negative except as documented in HPI and ROS
Constitutional: Reports no symptoms; Denies fever, fatigue or chills
Respiratory: Reports no symptoms
Cardiac: Reports no symptoms
ABD/GI: Reports no symptoms; Denies nausea or vomiting
: Reports no symptoms
Musculoskeletal: Reports neck pain (left sided neck pain )
Skin: Reports no symptoms
Neurological: Reports headache
Hematologic/Lymphatic: Reports no symptoms
Psychiatric: Reports no symptoms
Phy Exam
<WOLF David - Last Filed: 04/22/24 23:34>
General Physical Exam
General Presentation: mild distress
General age: appears stated age
General Skin: warm and dry
General Habitus: normal
General Mental: alert
General Hydration: appears well hydrated
Neurological Exam
Neurological Exam: alert, oriented x3, no motor deficits, no sensory deficits and other (Normal sensation bilateral upper extremities normal roller billet mill strength)
Musculoskeletal Exam
Musculoskeletal Exam: other (Patient tender throughout the left lateral cervical muscles holding neck very still pain with any range of motion to the left no swelling)
Skin Exam
Skin Exam: normal color and warm/dry
Psychiatric Exam
Psychiatric Exam: normal mood/affect
Course
<Aly Ren DO - Last Filed: 04/22/24 20:43>
Orders/Labs/Results
Orders:
Orders
04/22/24 18:36
diazePAM [Valium Injection] 2 mg IV NOW STA
04/22/24 18:48
CT Head W/o Iv Contrast Urgent
Comment:
Reason For Exam: headache
04/22/24 18:56
Complete Blood Count/With Diff Urgent
Comprehensive Metabolic Panel Urgent
04/22/24 20:29
diazePAM [Valium Injection] 5 mg IV NOW STA
04/22/24 22:02
Acetaminophen 1000MG/100Ml [Ofirmev] 1,000 mg in 100 ml IV ONCE
Acetaminophen IV Indication:: ED Narcotic Naive Pt-ONCE
Abnormal Lab Results
04/22/24
18:56
WBC 13.7 H 10^3/uL
(4.8-10.8)
RBC 3.95 L 10^6/uL
(4.70-6.10)
Hgb 12.4 L g/dL
(13.0-18.0)
Hct 36.9 L %
(39.0-52.0)
MCH 31.4 H pg
(27.0-31.0)
Abs Immat Gran (auto) 0.1 H 10^3/uL
(0-0.05)
Absolute Neuts (auto) 8.9 H 10^3/uL
(1.4-6.5)
Absolute Monos (auto) 1.4 H 10^3/uL
(0.1-0.6)
Monocytes % 10.3 H %
(1.7-9.3)
Glucose 145 H mg/dl
(70-99)
04/22/24 18:56
04/22/24 18:56
Vital Signs
Initial and Last Documented VS:
Initial Vital Signs
Temp Pulse Resp BP Pulse Ox
98.9 F 72 18 146/69 96
04/22/24 17:44 04/22/24 17:44 04/22/24 17:44 04/22/24 17:44 04/22/24 17:44
Last Documented Vital Signs
Temp Pulse Resp BP Pulse Ox
98.9 F 79 18 123/59 93
04/22/24 17:44 04/22/24 22:36 04/22/24 22:36 04/22/24 22:36 04/22/24 22:36
<WOLF David - Last Filed: 04/22/24 23:34>
Orders/Labs/Results
Orders:
Orders
04/22/24 18:36
diazePAM [Valium Injection] 2 mg IV NOW STA
04/22/24 18:48
CT Head W/o Iv Contrast Urgent
Comment:
Reason For Exam: headache
04/22/24 18:56
Complete Blood Count/With Diff Urgent
Comprehensive Metabolic Panel Urgent
04/22/24 20:29
diazePAM [Valium Injection] 5 mg IV NOW STA
04/22/24 22:02
Acetaminophen 1000MG/100Ml [Ofirmev] 1,000 mg in 100 ml IV ONCE
Acetaminophen IV Indication:: ED Narcotic Naive Pt-ONCE
Abnormal Lab Results
04/22/24
18:56
WBC 13.7 H 10^3/uL
(4.8-10.8)
RBC 3.95 L 10^6/uL
(4.70-6.10)
Hgb 12.4 L g/dL
(13.0-18.0)
Hct 36.9 L %
(39.0-52.0)
MCH 31.4 H pg
(27.0-31.0)
Abs Immat Gran (auto) 0.1 H 10^3/uL
(0-0.05)
Absolute Neuts (auto) 8.9 H 10^3/uL
(1.4-6.5)
Absolute Monos (auto) 1.4 H 10^3/uL
(0.1-0.6)
Monocytes % 10.3 H %
(1.7-9.3)
Glucose 145 H mg/dl
(70-99)
04/22/24 18:56
04/22/24 18:56
Vital Signs
Initial and Last Documented VS:
Initial Vital Signs
Temp Pulse Resp BP Pulse Ox
98.9 F 72 18 146/69 96
04/22/24 17:44 04/22/24 17:44 04/22/24 17:44 04/22/24 17:44 04/22/24 17:44
Last Documented Vital Signs
Temp Pulse Resp BP Pulse Ox
98.9 F 79 18 123/59 93
04/22/24 17:44 04/22/24 22:36 04/22/24 22:36 04/22/24 22:36 04/22/24 22:36
Method Consultant consulted with Physician
Method Consultant consulted with physician?: Yes
Name of Physician Consulted: Walter
<WOLF David - Last Filed: 04/22/24 23:34>
MDM/Problems Addressed
Differential Diagnosis Includes:
not limited to: torticollis, intracranial hemorrhage headache less likely dissection
MDM/Problems Addressed:
Symptoms are consistent with torticollis. Patient has pain with movement to neck worse to the left. Patient with very tense muscles, no neurological deficits. No concerning symptoms for dissection. Patient complains of headache as well over the
past several days likely muscular as well. He denies trauma. He is on blood thinners.
CAT scan negative denies any fever chills is afebrile here white count minimally elevated however no infectious complaints. Case discussed ED physician evaluated patient patient was given Valium here IV and IV Ofirmev and monitored. Patient is
feeling better. Patient had moist heat while here in the ER and reports this did help as well. Will DC the Valium with instructions to take Tylenol moist heat gentle range of motion of close outpatient follow-up.
<WOLF David - Last Filed: 04/22/24 23:34>
*Radiology
Radiology exam reviewed: radiology read reviewed
*Pulse Oximetry
Patient hypoxic: no
*Critical Care Note
Total Time (30-74mins, 75-104mins- exclusive of procedures): Not Applicable
ED Attending Note
<Aly Ren DO - Last Filed: 04/22/24 20:43>
ED Attending Note
Patient seen and examined by attending physician: Yes
I performed the substantive portion of visit, reviewed & personally made and approve the management plan that is documented in note by myself or BHARGAV.: Yes
ED Attending Note:
69-year-old male presents with pain in the left neck radiating down to his shoulder and side as well as up to the back of the head. Patient admits that it is difficult to move his head turned his neck. Difficult to flex his chin. No vomiting. No
vision changes. No motor weakness. Exam: Significant tenderness and spasm in the left SCM. No focal deficits. No respiratory distress. Assessment and plan: Trial muscle relaxation. Pain control. Reassess
<WOLF David - Last Filed: 04/22/24 23:34>
-
Portions of this chart may have been created with voice recognition software.� Occasional wrong word or��sound alike� substitutions may have occurred due to the inherent limitations of voice recognition software.
Discharge Plan
Departure
Patient Disposition: Home (Routine Discharge)
Date of Disposition: 04/22/24
Time of Disposition: 23:21
Patient with high blood pressure during this ER visit?: No
Covid-19: Not Applicable
Discharge Problem:
Acute torticollis
Instructions: Torticollis (DC)
Prescriptions:
New
diazepam [Valium] 5 mg tablet
5 mg PO TID PRN (Reason: muscle spasm) Qty: 10 0RF
lidocaine 5 % adhesive patch,medicated
1 patch topical DAILY Qty: 15 0RF
No Action
desloratadine [Clarinex] 5 MG tablet
5 mg PO DAILY
One Daily Men's 50 Plus Memory 1 EACH tablet
1 tab PO DAILY
allopurinol 100 MG tablet
100 mg PO DAILY
metoprolol succinate 100 MG tablet extended release 24 hr
100 mg PO BID
Prevagen
1 cap PO DAILY
zolpidem 5 mg Tablet
5 mg PO HSPRN PRN (Reason: insomnia)
amlodipine 5 mg Tablet
5 mg PO DAILY
Eliquis 5 MG tablet
5 mg PO BID
Hold Instructions: Resume Eliquis when clear as per Podiatry
acetaminophen [Pain Relief ES (acetaminophen)] 500 mg tablet
1,000 mg PO PRN PRN (Reason: pain)
cyanocobalamin (vitamin B-12) 1,000 mcg Tablet
1,000 mcg PO BID
gabapentin 100 mg Capsule
200 mg PO TID
Referrals:
Radu oRdgers DO [Family Provider] -
Activity Restrictions/Additional Instructions:
As discussed a prescription for Valium was sent to her pharmacy take as directed. This is a muscle relaxer will cause drowsiness no driving or drinking alcohol or taking this medicine. Do not take your narcotics while taking this medication. In
addition please stop the muscle laxer that you are currently taking.
You may take Tylenol orally every 4-6 hours. Also a prescription for lidocaine patch was sent to your pharmacy use as directed.
As discussed when to take your medications please do gentle range of motion exercises with your neck. Follow-up close with your family doctor in the next several days and return to the ER if any worsening of symptoms.
Interventions
Interventions:
*Risk Screen - Suicide Last Done: 04/22/24 17:48
*General Assessment Last Done: 04/22/24 17:48
*Neglect/Abuse Screening Last Done: 04/22/24 18:27
ED- Fall Risk Assessment Last Done: 04/22/24 18:06
*ED COVID-19 Vaccine History Last Done: 04/22/24 17:48
Discharge Date and Time
Print Language: [id number]
[2024-04-22] MEDS: VALIUM INJECTION 2 MG IV (18:49)
[2024-04-22 19:01] LABS: % Basophils 0.3 % (0-2); % Eosinophils 0.8 % (0-6); % Immature Granulocytes 0.4 % (0-0.5); % Monocytes 10.3 % (1.7-9.3); % Neutrophils 65.2 % (42.2-75.2); Absolute Eosinophils 0.1 10^3/uL (0-0.7); Absolute Immature Granulocytes 0.1 10^3/uL (0-0.05); Absolute Lymphocytes 3.2 10^3/uL (1.2-3.4); Absolute Monocytes 1.4 10^3/uL (0.1-0.6); Absolute Neutrophils 8.9 10^3/uL (1.4-6.5); Hematocrit 36.9 % (39.0-52.0); Hemoglobin 12.4 g/dL (13.0-18.0); Mean Corp Hgb Conc. 33.6 g/dL (33.0-37.0); Mean Corpuscular Hgb 31.4 pg (27.0-31.0); Mean Corpuscular Volume 93.4 fL (80.0-94.0); Mean Platelet Volume 9.2 fL (7.4-10.4); Nucleated Red Blood Cells % 0 % (-); Platelet Count 232 10^3/uL (130-400); Red Blood Cell Count 3.95 10^6/uL (4.70-6.10); Red Cell Dist. Width 12.4 % (11.5-14.5); White Blood Cell Count 13.7 10^3/uL (4.8-10.8)
[2024-04-22 19:16] LABS: ALT (SGPT) 14 U/L (0-50); AST (SGOT) 25 U/L (17-59); Albumin 3.7 g/dl (3.5-5.0); Alkaline Phosphatase 64 U/L (38-126); Blood Urea Nitrogen 18 mg/dl (9-20); Calcium 9.1 mg/dl (8.4-10.2); Carbon Dioxide 30 mmol/L (22-30); Chloride 98 mmol/L (98-107); Glucose 145 mg/dl (70-99); Potassium 3.6 mmol/L (3.5-5.1); Sodium 136 mmol/L (135-145); Total Bilirubin 0.9 mg/dl (0.2-1.3); Total Protein 6.8 g/dl (6.3-8.2); eGFR > 60.00
[2024-04-22] MEDS: VALIUM INJECTION 5 MG IV (20:44)
[2024-04-22] MEDS: OFIRMEV 100 IV (22:07)
[2024-04-22 22:36] VITALS: BP 123/59
[2024-04-22] MEDS: LIDOCAINE 4% PATCH 1 PATCH TOPICAL (23:48)
[2024-04-23 00:02] VITALS: BP 122/67
== END 2024-04-23 00:05 | disposition home or self-care (01) ==
LOC: EMR 17:43
PROVIDERS: Nurse Practitioner; EMERGENCY PHYSICIAN Emergency Medicine; FAMILY PHYSICIAN Family Medicine
DX: M43.6 Torticollis (principal); M54.2 Cervicalgia; K21.9 Gastro-esophageal reflux disease without esophagitis; I10 Essential (primary) hypertension; E11.9 Type 2 diabetes mellitus without complications; Z79.01 Long term (current) use of anticoagulants; Z90.49 Acquired absence of other specified parts of digestive tract
CPT/HCPCS: 99284; 96374; 96375; 96376; 70450; 80053; 85025

== ENCOUNTER 2024-05-23 15:25 | Emergency (ER) | payer MEDICARE, OTHER, SELFPAY ==
[2024-05-23 15:26] VITALS: BMI 32.0
[2024-05-23 15:35] VITALS: BP 131/71
[2024-05-23 15:56] LABS: % Basophils 0.1 % (0-2); % Eosinophils 0.1 % (0-6); % Immature Granulocytes 0.9 % (0-0.5); % Lymphocytes 23.9 % (20.5-51.1); % Monocytes 9.3 % (1.7-9.3); % Neutrophils 65.7 % (42.2-75.2); Absolute Immature Granulocytes 0.1 10^3/uL (0-0.05); Absolute Lymphocytes 3.5 10^3/uL (1.2-3.4); Absolute Monocytes 1.4 10^3/uL (0.1-0.6); Absolute Neutrophils 9.7 10^3/uL (1.4-6.5); Hematocrit 38.1 % (39.0-52.0); Hemoglobin 13.3 g/dL (13.0-18.0); Mean Corp Hgb Conc. 34.9 g/dL (33.0-37.0); Mean Corpuscular Hgb 31.1 pg (27.0-31.0); Mean Corpuscular Volume 89.2 fL (80.0-94.0); Mean Platelet Volume 9.5 fL (7.4-10.4); Nucleated Red Blood Cells % 0 % (-); Platelet Count 301 10^3/uL (130-400); Red Blood Cell Count 4.27 10^6/uL (4.70-6.10); Red Cell Dist. Width 13.6 % (11.5-14.5); White Blood Cell Count 14.7 10^3/uL (4.8-10.8)
[2024-05-23 16:18] LABS: ALT (SGPT) 26 U/L (0-50); AST (SGOT) 27 U/L (17-59); Albumin 4.1 g/dl (3.5-5.0); Alkaline Phosphatase 60 U/L (38-126); Blood Urea Nitrogen 30 mg/dl (9-20); Calcium 9.7 mg/dl (8.4-10.2); Carbon Dioxide 30 mmol/L (22-30); Chloride 98 mmol/L (98-107); Glucose 152 mg/dl (70-99); Lipase 83 U/L (23-300); Potassium 4.2 mmol/L (3.5-5.1); Sodium 134 mmol/L (135-145); Total Bilirubin 0.7 mg/dl (0.2-1.3); Total Protein 6.7 g/dl (6.3-8.2); eGFR > 60.00
[2024-05-23 17:01] VITALS: BP 122/68
--- NOTE | 2024-05-23 17:38 | ED.GENMED ---
History of Present Illness
General
Chief Complaint: Abdominal Pain
Source: patient
Exam Limitations: none
Time Seen by Provider: 05/23/24 16:40
Nursing documentation reviewed up to this point in time: agreed with
History of Present Illness
History of Present Illness:
pt is a 69 y/o M with h/o afib on eliquis
htn hld
divertic s/p partial colon resection [address] manning
here with LLQ pain suspcious for divertic flare
went to pcp 3 days ago and got rx augmentin 1000; pt has taken 6 doses but pain got worse today gradually; not abrupt
no fever, chills, nauesa, vomiting,
pt is passing gas
no diarrhea
Past History
Past History
ED Past Medical History: Arrthythmia, GERD, HTN, NIDDM and Other (diverticulitis)
ED Past Surgical History: Appendectomy and Bowel resection (Sigmoid resection)
Patient has exhibited threatening behavior?: No
Social History
Tobacco: Non-smoker
Alcohol: Daily (Vodka 2-3 shots)
Drug: None
Personal:
Living: with family
Employment: Employed
Family History
Family History: Other (Nonsignificant)
Review of Systems
Review of Systems
Allergies reviewed?: Yes
All Other Systems: Not applicable
Phy Exam
Physical Exam
Physical Exam:
GENERAL: Alert , in no apparent distress
ENT: o/p clr, mmm.
CARDIAC: Regular rate and rhythm .
LUNGS: Clear breath sounds bilaterally, no acute respiratory distress, no wheezes/rales/rhonchi
ABDOMEN: Soft, LLQ tenderness mild to mod, no r/g, no cvat, normal bowel sounds
: NORMAL inspection
slight tenderness to testicles b/l no masses
NEUROLOGICAL: Alert and oriented, no focal neuro deficits
SKIN: Warm and dry, skin intact.
PSYCH: Normal and appropriate interaction.
Course
Orders/Labs/Results
Orders:
Orders
05/23/24 15:47
Complete Blood Count/With Diff Urgent
Comprehensive Metabolic Panel Urgent
Lipase Urgent
05/23/24 17:23
Diphenhydramine [Benadryl] 50 mg IV NOW STA
Hydrocortisone Sod Succinate [Solu-Cortef] 200 mg IV NOW STA
Iohexol [Omnipaque] See Protocol PO NOW STA
05/23/24 17:30
CT Abd/pel (oral only)-DH Only Urgent
Comment:
Reason For Exam: llq pain ,h/o divertic, bowel resection
Iohexol [Omnipaque] See Protocol PO NOW STA
05/23/24 17:37
0.9% Sodium Chloride 500 ml [Nss] 500 ml IV BOLUS
HYDROmorphone [Dilaudid] 0.5 mg IV NOW STA
05/23/24 20:33
US Scrotum Urgent
Comment:
Reason For Exam: L testicular pain
05/23/24 21:23
Urinalysis Reflex To Culture Urgent
Date Specimen was Collected: 05/23/24
Time Specimen was Collected: 21:21
Abnormal Lab Results
05/23/24 05/23/24
15:47 21:23
WBC 14.7 H 10^3/uL
(4.8-10.8)
RBC 4.27 L 10^6/uL
(4.70-6.10)
Hct 38.1 L %
(39.0-52.0)
MCH 31.1 H pg
(27.0-31.0)
Abs Immat Gran (auto) 0.1 H 10^3/uL
(0-0.05)
Absolute Neuts (auto) 9.7 H 10^3/uL
(1.4-6.5)
Absolute Lymphs (auto) 3.5 H 10^3/uL
(1.2-3.4)
Absolute Monos (auto) 1.4 H 10^3/uL
(0.1-0.6)
Immature Gran % 0.9 H %
(0-0.5)
Sodium 134 L mmol/L
(135-145)
BUN 30 H mg/dl
(9-20)
Glucose 152 H mg/dl
(70-99)
Urine Glucose Trace A
(Negative)
05/23/24 15:47
05/23/24 15:47
Vital Signs
Initial and Last Documented VS:
Initial Vital Signs
Temp Pulse Resp BP Pulse Ox
98.5 F 57 18 131/71 96
05/23/24 15:35 05/23/24 15:35 05/23/24 15:35 05/23/24 15:35 05/23/24 15:35
Last Documented Vital Signs
Temp Pulse Resp BP Pulse Ox
98.5 F 58 14 122/66 97
05/23/24 15:35 05/23/24 23:01 05/23/24 23:01 05/23/24 23:01 05/23/24 23:01
MDM/Problems Addressed
Differential Diagnosis Includes:
dvierticulits, abscess, testicular cancer
MDM/Problems Addressed:
69 y/o M with h/o divertic s/p partial bowel resection
similar pain to LLQ the past few days, saw cp and got r augmentin 1000 bid
says today pain got much worse and he is here to be sure there is no abscess
no fever
well appearing
mild LLQ tendenress, no guarding or rebound
mild leukocytosis 15
left shift
ct shows no abscess; no evidence of diverticulitis
pt then told me about this ongoign issue with testicular pain and groin pain with erection and ejaculation
he had some testicular tenderness, thus proceeded with US but this sounds like an issue he has had for quite a while and has not seen urologist
US was neg
recommned outpatient uro
continue abx for divertic
*Critical Care Note
Total Time (30-74mins, 75-104mins- exclusive of procedures): Not Applicable
ED Attending Note
-
Portions of this chart may have been created with voice recognition software.� Occasional wrong word or��sound alike� substitutions may have occurred due to the inherent limitations of voice recognition software.
Discharge Plan
Departure
Patient Disposition: Home (Routine Discharge)
Date of Disposition: 05/23/24
Time of Disposition: 22:34
Patient with high blood pressure during this ER visit?: No
Condition: Fair
Covid-19: Not Applicable
Discharge Problem:
Abdominal pain, Diverticulosis
Instructions: Diverticulitis (DC)
Prescriptions:
No Action
desloratadine [Clarinex] 5 MG tablet
5 mg PO DAILY
One Daily Men's 50 Plus Memory 1 EACH tablet
1 tab PO DAILY
allopurinol 100 MG tablet
100 mg PO DAILY
metoprolol succinate 100 MG tablet extended release 24 hr
100 mg PO BID
Prevagen
1 cap PO DAILY
zolpidem 5 mg Tablet
5 mg PO HSPRN PRN (Reason: insomnia)
amlodipine 5 mg Tablet
5 mg PO DAILY
Eliquis 5 MG tablet
5 mg PO BID
Hold Instructions: Resume Eliquis when clear as per Podiatry
acetaminophen [Pain Relief ES (acetaminophen)] 500 mg tablet
1,000 mg PO PRN PRN (Reason: pain)
cyanocobalamin (vitamin B-12) 1,000 mcg Tablet
1,000 mcg PO BID
gabapentin 100 mg Capsule
200 mg PO TID
diazepam [Valium] 5 mg tablet
5 mg PO TID PRN (Reason: muscle spasm) Qty: 10 0RF
lidocaine 5 % adhesive patch,medicated
1 patch topical DAILY Qty: 15 0RF
Referrals:
Oj Chávez MD [Active] - Follow up in 5-7 days
Radu Rodgers, [Family Provider] - Follow up in 2-3 days
Activity Restrictions/Additional Instructions:
Your CAT scan showed no acute findings of diverticulitis. You should continue your antibiotics as prescribed. You can take Tylenol for pain as needed. Your ultrasound did show that your testicles look okay, you had a small amount of fluid in the
scrotum which is relatively a normal finding. You should follow-up with urologist. Return for any concerns
Interventions
Interventions:
*Risk Screen - Suicide Last Done: 05/23/24 16:42
*General Assessment Last Done: 05/23/24 15:35
*Neglect/Abuse Screening Last Done: 05/23/24 16:42
ED- Fall Risk Assessment Last Done: 05/23/24 16:43
*ED COVID-19 Vaccine History Last Done: 05/23/24 15:35
*Nursing Disposition Last Done: 05/23/24 23:04
FD-[id number]-[id number] Assessment Last Done: 05/23/24 16:42
Discharge Date and Time
Discharge Date/Time: 05/23/24 23:04
Print Language: [id number]
[2024-05-23] MEDS: DILAUDID 0.5 MG IV (17:39)
[2024-05-23] MEDS: NSS 500 IV (17:40)
[2024-05-23] MEDS: OMNIPAQUE 50 ML PO (17:40)
[2024-05-23 21:43] LABS: Urine Albumin Negative (Neg - Trace); Urine Bilirubin Negative (Negative); Urine Character Clear (Clear); Urine Color Yellow; Urine Glucose Trace (Negative); Urine Ketone Negative (Negative); Urine Leukocyte Negative (Negative); Urine Nitrite Negative (Negative); Urine Occult Blood Negative (Negative); Urine Specific Gravity 1.005 (<1.030); Urine Urobilinogen Negative (Neg - 1+)
[2024-05-23 23:01] VITALS: BP 122/66
== END 2024-05-23 23:04 | disposition home or self-care (01) ==
LOC: EMR 15:25
PROVIDERS: Physician Assistant; Student in an Organized Health Care Education/Training Program; EMERGENCY PHYSICIAN Student in an Organized Health Care Education/Training Program; FAMILY PHYSICIAN Family Medicine
DX: R10.32 Left lower quadrant pain (principal); K57.90 Diverticulosis of intestine, part unspecified, without perforation or abscess without bleeding; N50.812 Left testicular pain
CPT/HCPCS: 99285; 96374; 96361; 74176; 76870; 80053; 81003; 83690; 85025; 93976

== ENCOUNTER → 2024-06-23 14:33 | Outpatient (REF) | payer MEDICARE, OTHER, SELFPAY | LOC: MRI 3T 14:33 | PROVIDERS: ATTENDING PHYSICIAN Pain Medicine Interventional Pain Medicine; FAMILY PHYSICIAN Family Medicine | DX: M54.16 Radiculopathy, lumbar region (principal) | CPT/HCPCS: 72148 ==

== ENCOUNTER → 2024-08-04 06:26 | Day surgery (SDC) | payer MEDICARE, OTHER, SELFPAY | LOC: GI 06:26 | PROVIDERS: ATTENDING PHYSICIAN Internal Medicine; FAMILY PHYSICIAN Family Medicine | DX: Z12.11 Encounter for screening for malignant neoplasm of colon (principal); K57.30 Diverticulosis of large intestine without perforation or abscess without bleeding; N40.2 Nodular prostate without lower urinary tract symptoms; K30 Functional dyspepsia; R14.2 Eructation; K44.9 Diaphragmatic hernia without obstruction or gangrene; K31.89 Other diseases of stomach and duodenum; D17.5 Benign lipomatous neoplasm of intra-abdominal organs; Z86.010 Personal history of colon polyps; Z98.0 Intestinal bypass and anastomosis status; Z87.19 Personal history of other diseases of the digestive system | CPT/HCPCS: 43239; G0105; 88305; 88342 ==

== ENCOUNTER → 2025-07-28 17:08 | Outpatient (REF) | payer MEDICARE, OTHER, SELFPAY | LOC: PAVMRI 17:08 | PROVIDERS: ATTENDING PHYSICIAN Physician Assistant; FAMILY PHYSICIAN Family Medicine | DX: M25.511 Pain in right shoulder (principal) | CPT/HCPCS: 73221 ==

== ENCOUNTER 2025-09-07 17:52 | Inpatient (IN) | payer MEDICARE, OTHER, SELFPAY ==
[2025-09-07] VITALS (10 sets, daily range): BP systolic 118–145; BP diastolic 68–83; PULSE 62; BMI 30.8; BMI 32.0
[2025-09-07 12:23] LABS: Hematocrit 38.6 % (39.0-52.0); Hemoglobin 12.9 g/dL (13.0-18.0); Mean Corp Hgb Conc. 33.4 g/dL (33.0-37.0); Mean Corpuscular Volume 93.2 fL (80.0-94.0); Nucleated Red Blood Cells % 0 % (-); Platelet Count 224 10^3/uL (130-400); Red Cell Dist. Width 13.2 % (11.5-14.5)
[2025-09-07 12:34] LABS: ALT (SGPT) 36 U/L (0-50); AST (SGOT) 38 U/L (17-59); Albumin 4.1 g/dl (3.5-5.0); Alkaline Phosphatase 50 U/L (38-126); Blood Urea Nitrogen 16 mg/dl (9-20); Calcium 8.9 mg/dl (8.4-10.2); Carbon Dioxide 27 mmol/L (22-30); Chloride 101 mmol/L (98-107); Glucose 187 mg/dl (70-99); Lipase 67 U/L (23-300); Potassium 3.8 mmol/L (3.5-5.1); Sodium 137 mmol/L (135-145); Total Protein 6.9 g/dl (6.3-8.2); eGFR > 60.00
[2025-09-07 12:41] LABS: Urine Character Clear (Clear)
--- NOTE | 2025-09-07 14:42 | ED.GENMED ---
History of Present Illness
General
Chief Complaint: Flank Pain
Time Seen by Provider: 09/07/25 14:17
History of Present Illness
History of Present Illness:
Patient is a 70-year-old male with history of A-fib on Eliquis, hypertension, hyperlipidemia, diverticulitis status post bowel resection presenting to the emergency department right flank pain. Patient states that a few days ago he noticed some
right sided flank pain. Yesterday he developed chills and had a fever of 102.9. No urinary symptoms. He does state that the pain is intermittent sharp stabbing from the right flank. No abdominal pain. No nausea vomiting. No obvious blood in
urine. No history of UTIs. No history of kidney stone. Normal bowel movements. No URI symptoms. No chest pain. No shortness of breath. No testicular pain or swelling.
Past History
Past History
ED Past Medical History: Arrthythmia, GERD, HTN, NIDDM and Other (diverticulitis)
ED Past Surgical History: Appendectomy and Bowel resection (Sigmoid resection)
Patient has exhibited threatening behavior?: No
Social History
Tobacco: Non-smoker
Alcohol: Daily (Vodka 2-3 shots)
Drug: None
Personal:
Living: with family
Employment: Employed
Family History
Family History: Other (Nonsignificant)
Phy Exam
Physical Exam
Physical Exam:
GENERAL: in no acute distress
HEENT: normocephalic, extraocular movements intact, moist oral mucosa
NECK: normal inspection
RESPIRATORY: no respiratory distress, clear to auscultation bilaterally
CARDIOVASCULAR: regular rate and rhythm
ABDOMEN/: soft, non-distended, non-tender to palpation, no rebound or guarding, right CVA tenderness
EXTREMITIES: non-tender, no edema/swelling
NEUROLOGIC: awake and alert, moves all extremities
SKIN: warm
Course
Orders/Labs/Results
Orders:
Orders
09/07/25 12:05
Complete Blood Count/With Diff Urgent
Comprehensive Metabolic Panel Urgent
Lipase Urgent
09/07/25 12:13
Urinalysis Reflex To Culture Urgent
Date Specimen was Collected: 09/07/25
Time Specimen was Collected: 11:54
Urine Microscopic Reflex Cult Urgent
09/07/25 14:18
CT Abd/pel Without Iv Or Oral Urgent
Reason For Exam: flank pain
09/07/25 14:38
Morphine Sulfate 2 mg IV NOW STA
09/07/25 16:26
Blood Culture Urgent
JANET Source: Blood/Venous
Specimen Description:
CefTRIAXone [Rocephin] 2,000 mg IV NOW STA
Abnormal Lab Results
09/07/25 09/07/25
12:05 12:13
RBC 4.14 L 10^6/uL
(4.70-6.10)
Hgb 12.9 L g/dL
(13.0-18.0)
Hct 38.6 L %
(39.0-52.0)
MCH 31.2 H pg
(27.0-31.0)
Absolute Lymphs (auto) 1.0 L 10^3/uL
(1.2-3.4)
Absolute Monos (auto) 0.7 H 10^3/uL
(0.1-0.6)
Lymphocytes % 18.7 L %
(20.5-51.1)
Monocytes % 12.0 H %
(1.7-9.3)
Glucose 187 H mg/dl
(70-99)
Ur Occult Blood Reflex 1+ A
(Negative)
Urine RBC 3-6 A /HPF
(0-2)
Urine Bacteria (Reflex) Few A
(Negative)
Urine Glucose 1+ A
(Negative)
Urine Albumin (Reflex) 2+ A
(Neg - Trace)
09/07/25 12:05
09/07/25 12:05
Vital Signs
Initial and Last Documented VS:
Initial Vital Signs
Temp Pulse Resp BP Pulse Ox
98.6 F 66 20 128/70 96
09/07/25 11:49 09/07/25 11:49 09/07/25 11:49 09/07/25 11:49 09/07/25 11:49
Last Documented Vital Signs
Temp Pulse Resp BP Pulse Ox
99.0 F 60 18 131/69 97
09/07/25 14:27 09/07/25 16:00 09/07/25 16:00 09/07/25 16:00 09/07/25 16:00
MDM/Problems Addressed
Differential Diagnosis Includes:
Patient is a 70-year-old male presenting to the emergency department right flank pain as well as fevers. On arrival patient is afebrile and exam does show right CVA tenderness. Concern for Jaime versus UTI versus kidney stone. Considered aortic
pathology though less likely. Will obtain blood work urinalysis and CT scan. Will pain control.
*Pulse Oximetry
SaO2: 98
Oxygen Mode of Delivery: Room air
Patient hypoxic: no
*Critical Care Note
Total Time (30-74mins, 75-104mins- exclusive of procedures): Not Applicable
Update Note
Update Note:
Blood work is reassuring. Urine is slightly positive though it is contaminated. CT scan does show mild bladder wall thickening. Given the temperature slightly positive urinalysis we will admit for IV antibiotics while awaiting culture results.
Discussed with hospitalist who accepted patient to their service.
ED Attending Note
-
Portions of this chart may have been created with voice recognition software.� Occasional wrong word or��sound alike� substitutions may have occurred due to the inherent limitations of voice recognition software.
Discharge Plan
Departure
Patient Disposition: Admit
Date of Disposition: 09/07/25
Time of Disposition: 16:26
Presentation/result/management discussed w/ accepting MD/: Hospitalist
Discharge Problem:
Acute pyelonephritis
Prescriptions:
No Action
desloratadine [Clarinex] 5 MG tablet
5 mg PO DAILY
One Daily Men's 50 Plus Memory 1 EACH tablet
1 tab PO DAILY
allopurinol 100 MG tablet
100 mg PO DAILY
metoprolol succinate 100 MG tablet extended release 24 hr
100 mg PO BID
Prevagen
1 cap PO DAILY
Eliquis 5 MG tablet
5 mg PO BID
cyanocobalamin (vitamin B-12) 1,000 mcg Tablet
1,000 mcg PO BID
gabapentin 100 mg Capsule
600 mg PO BID
buspirone 5 mg Tablet
5 mg PO BID
Belsomra 10 mg Tablet
10 mg PO HS
Referrals:
Radu Rodgers DO [Family Provider, Family Practice]
Interventions
Interventions:
*Risk Screen - Suicide Last Done: 09/07/25 11:49
*General Assessment Last Done: 09/07/25 11:49
*Neglect/Abuse Screening Last Done: 09/07/25 11:49
*ED- Fall Risk Assessment Last Done: 09/07/25 14:29
*ED COVID-19 Vaccine History Last Done: 09/07/25 14:29
*ED Influenza Vaccine History Last Done: 09/07/25 14:29
UN-[facility] Assessment Last Done: 09/07/25 14:30
ED-Male Genitourinary Assessment Last Done: 09/07/25 14:30
Discharge Date and Time
Print Language: PAKISTANI
[2025-09-07] MEDS: MORPHINE SULFATE 2 MG IV (15:01)
[2025-09-07] MEDS: ROCEPHIN 2000 MG IV (16:56)
--- NOTE | 2025-09-07 17:00 | W.PN.UPDATE ---
Update Note
Progress Note Update
This note serves as an addendum to the H&P by graduate assistant athletic trainer BHARGAV�PGY#
HPI
70M Non smoker, daily ETOH, l DM, diabetic neuropathy, HTN, Prx AF , chr Eliquis, Diverticulitis s/p BW resection seen at ER:
- eval for right flank pain for few days ago
- Yesterday he developed chills and had a fever of 102.9.
- No urinary symptoms.
- POS intermittent sharp stabbing from the right flank.
ROS:
No abdominal pain.
No nausea vomiting.
No obvious blood in urine.
No history of UTIs.
No history of kidney stone.
No testicular pain or swelling.
Relevant VS
Temp Pulse Resp BP Pulse Ox
99.0 F 60 18 131/69 97
09/07/25 14:27 09/07/25 16:00 09/07/25 16:00 09/07/25 16:00 09/07/25 16:00
PE
GENERAL: NAD
HEENT: moist oral mucosa
NECK: normal inspection
RESP: clear to auscultation bilaterally
CVS: RR
ABDOMEN: soft, non-distended, non-tender to palpation, no rebound or guarding
: R CVA tenderness
EXTREMITIES: non-tender, no edema/swelling
NEUROLOGIC: awake and alert, moves all extremities
SKIN: warm
Relevant Data
05/23/24 09/07/25
15:47 12:05
WBC 5.6
Hgb 13.3 12.9 L
Sodium 137
Potassium 3.8
Chloride 101
Carbon Dioxide 27
BUN 16
Creatinine 1.1
eGFR > 60.00
Glucose 187 H
AST 38
ALT 36
Alkaline Phosphatase 50
09/07/25
12:13
Ur Occult Blood Reflex 1+ A
Urine RBC 3-6 A
Urine WBC (Reflex) 3-5
Urine Bacteria (Reflex) Few A
CT Abd/pel Without Iv Or Oral
- No renal, ureteral, or bladder calculus.
No obstructive uropathy.
Chronic perinephric soft tissue stranding, as described, unchanged.
Mild bladder wall thickening.
Subtle bladder wall trabeculation suggested near the bladder dome.
- Diverticulosis without acute diverticulitis. No bowel obstruction.
- Mild colonic fecal burden.
- Multilevel discogenic and facet degenerative changes of the lumbar spine with associated central canal and foraminal stenosis.
- Bilateral hip arthritis. Incidental extra articular synovial cyst projecting anterior and lateral to the right hip, slightly increased in size.
Partially visualized mild left inguinal adenopathy. Likely reactive, though clinical correlation recommended.
Last hospitalist admission: 12/03/23 - 12/05/23
Dxs: Left 2nd toe Osteomyelitis status post amputation, Mild Anemia
ASSESSMENT & PLAN
Fever and R flank pain
Questionable UA for UTI
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
- No urinary symptoms
- Nl WCC
- Unremarkable CT for stone and obstruction
- First dose of Empiric IV CFTX at ER
- f/u UCx and BCx
- check Covid, Flu A & B
HX Lt second toe osteomyelitis: s/p amputation 12/04
HX Prx AF
- metoprolol succinate and chr Eliquis
Diabetes diet controlled with neuropathic pain
-on home Gabapentin
- A1c
- ISS Low
Bn HTN
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
HX Gout
- No acute
- home allopurinol
DVT Px: Chr Eliquis
Full code
IP MS
--- NOTE | 2025-09-07 17:05 | HPS.HSE ---
Family Physician
-
Family Physician: Radu Rodgers
Chief Complaint
-
Right flank pain
History of Present Illness
70-year-old male presents to the ER reporting right-sided flank pain that started 10 days ago. Patient has a past medical history of hypertension, gout, NIDDM (carb controlled not on any medications), GERD, paroxysmal A-fib on Eliquis,, history of
osteomyelitis left second toe, left great toe (s/p partial amputation done at [facility] in April 2025). Patient reports that his right flank pain was intermittent, started 10 days ago, intermittent, initially it radiated towards the right groin, but
for the past 2 days it has worsened and was localized to the right flank. Patient also reports having fever/chills last night, temperature�102.9 he took Tylenol and hydrocodone which helped with pain and fever. Patient denies hematuria, suprapubic
pain, lightheadedness/dizziness, chest pain, shortness of breath, nausea/vomiting. Was not sick recently. Patient denies any history of renal stones, but reports that he had a remote history of urinary tract infection 20 years ago.
ED course�labs unremarkable, normal renal function, elevated glucose�187. Vital stable, afebrile. Urinalysis�leuk esterase negative, likely contaminated, few WBCs,.
CT abdomen pelvis with evidence of bladder wall thickening.
Medical History
Past Medical History
Past Medical History: Reports Arrhythmia, GERD, HTN, NIDDM and Other (Gout)
Past Surgical History: Reports Appendectomy, Bowel Resection and Orthopedic (Shoulder surgery, osteomyelitis left second toe, great toe s/p amputation.)
Social History
Tobacco: Non-smoker
Alcohol: Occasional
Drug: None
Personal:
Living: With Family
Family History
Family History: Not pertinent
Allergies / Home Medications
Allergies reflects when Allergies were last updated in [employer].
Home Medications with original date entered in [employer]
Allergy/Medication List:
Allergies
Allergy/AdvReac Type Severity Reaction Status Date / Time
Iodinated Contrast Media (IV Allergy chest Verified 09/07/25 11:52
Dye, Iodine Containing) tightness
pollen extracts Allergy Itchy Verified 09/07/25 11:52
Eyes,
rhinitis
Home Medications
desloratadine 5 mg tablet (Clarinex) 5 mg PO DAILY Allergies 06/21/10
aqchmepw-kgva-xaczh acid 400 mcg-lycopene 600 mcg-ginkgo 120 mg tablet (One Daily Men's 50 Plus Memory Support) 1 tab PO DAILY Supplement 09/20/19
allopurinol 100 mg tablet 100 mg PO DAILY Gout 01/07/21
metoprolol succinate 100 mg tablet,extended release 24 hr 100 mg PO BID Blood pressure 05/12/21
Prevagen 1 cap PO DAILY Supplement 08/07/21
apixaban 5 mg tablet (Eliquis) 5 mg PO BID Blood Clot Prevention/Tx 07/25/23
cyanocobalamin (vitamin B-12) 1,000 mcg tablet 1,000 mcg PO BID Supplement 12/03/23
gabapentin 100 mg capsule 600 mg PO BID Pain 12/03/23
buspirone 5 mg tablet 5 mg PO BID 09/07/25
suvorexant 10 mg tablet (Belsomra) 10 mg PO HS 09/07/25
Review of Systems
-
A 12 point ROS was completed and negative except as noted: Yes
Physical Exam
Vital Signs
Vital Signs
Temp Pulse Resp BP Pulse Ox
99.0 F 60 18 131/69 97
09/07/25 14:27 09/07/25 16:00 09/07/25 16:00 09/07/25 16:00 09/07/25 16:00
Physical Exam
General: Well Developed, Well Nourished and No Apparent Distress
HEENT: NormoCephalic and Atraumatic
Respiratory: Clear
Cardiac: S1/S2 and Regular Rhythm
GI: Soft, Non Tender, Non Distended and Normal Bowel Sounds
Genito-urinary: Costovertebral angle tend (Right side)
Musculoskeletal: Other (Left second toe amputated, left great toe partially amputated.)
Skin: Warm and Dry
Neuro: Awake, Alert, Oriented and AO x 3
Psych: Calm
Laboratory Results
-
09/07/25 12:05
09/07/25 12:05
Laboratory Results
Total Bilirubin 0.4 mg/dl (0.2-1.3) 09/07/25 12:05
AST 38 U/L (17-59) 09/07/25 12:05
ALT 36 U/L (0-50) 09/07/25 12:05
Alkaline Phosphatase 50 U/L (38-126) 09/07/25 12:05
Lipase 67 U/L (23-300) 09/07/25 12:05
Impression/Plan
-
IMPRESSION:
70-year-old male with past medical history of hypertension, NIDDM, GERD, paroxysmal A-fib on Eliquis, gout presenting with right-sided flank pain.
PLAN:
#Right-sided flank pain
Patient with history of fever/chills�temperature up to 102.9
Afebrile at presentation
Urinalysis�not convincing for UTI, leukocyte Esterase negative, few WBCs, with squamous epithelial cells. Might be contaminated
CT abdomen pelvis�no evidence of renal stone, pyelonephritis.
Will follow urine cultures
Blood cultures already ordered by ED, will follow
Will continue empiric ceftriaxone.
Will check COVID, flu
Monitor fever curve, CBC
#Paroxysmal A-fib
Rate controlled on metoprolol
On Eliquis, continue
Monitor telemetry
#NIDDM
Patient not on home antidiabetic meds
Carb controlled
Will check HbA1c
Will add basal bolus�low
Will continue gabapentin for diabetic neuropathy
#Hypertension
Continue metoprolol
#Gout
Continue allopurinol
#Osteomyelitis left great toe (s/p partial amputation April 2025 at [facility])
#Osteomyelitis of left second toe (s/p amputation 2023)
#Insomnia
Continue Belsomra
#Chronic allergies
Continue desloratadine
DVT prophylaxis Eliquis
Diet -carb controlled
Full code
[2025-09-07 19:49] LABS: COVID-19 Antigen Negative (Negative)
[2025-09-07] MEDS: TOPROL XL 100 MG PO (20:34)
[2025-09-07] MEDS: BUSPAR 5 MG PO (20:34)
[2025-09-07] MEDS: VITAMIN B-12 1000 MCG PO (20:34)
[2025-09-07] MEDS: ELIQUIS 5 MG PO (20:34)
[2025-09-07] MEDS: NEURONTIN 600 MG PO (20:34)
[2025-09-07 21:08] LABS: Glucose - Point of Care 175 mg/dl (70-99)
[2025-09-07] MEDS: NORCO 5/325 1 TABLET PO (23:38)
[2025-09-08 03:29] VITALS: BP 133/65
[2025-09-08 07:30] VITALS: BP 121/59
[2025-09-08 07:31] LABS: Glucose - Point of Care 120 mg/dl (70-99)
[2025-09-08 07:38] LABS: Hematocrit 37.8 % (39.0-52.0); Hemoglobin 12.5 g/dL (13.0-18.0); Mean Corp Hgb Conc. 33.1 g/dL (33.0-37.0); Mean Corpuscular Volume 96.4 fL (80.0-94.0); Nucleated Red Blood Cells % 0 % (-); Platelet Count 205 10^3/uL (130-400); Red Cell Dist. Width 13.2 % (11.5-14.5)
[2025-09-08 08:05] LABS: ALT (SGPT) 37 U/L (0-50); AST (SGOT) 37 U/L (17-59); Albumin 3.6 g/dl (3.5-5.0); Alkaline Phosphatase 46 U/L (38-126); Blood Urea Nitrogen 13 mg/dl (9-20); Calcium 9.0 mg/dl (8.4-10.2); Carbon Dioxide 33 mmol/L (22-30); Chloride 102 mmol/L (98-107); Estimated Creatinine Clearance 88 ml/min; Glucose 119 mg/dl (70-99); Potassium 4.2 mmol/L (3.5-5.1); Sodium 140 mmol/L (135-145); Total Protein 6.2 g/dl (6.3-8.2); eGFR > 60.00
[2025-09-08] MEDS: NEURONTIN 600 MG PO (09:15)
[2025-09-08] MEDS: VITAMIN B-12 1000 MCG PO (09:16)
[2025-09-08] MEDS: ELIQUIS 5 MG PO (09:16)
[2025-09-08] MEDS: CLARITIN 10 MG PO (09:16)
[2025-09-08] MEDS: THERAGRAN 1 TABLET PO (09:16)
[2025-09-08] MEDS: ZYLOPRIM 100 MG PO (09:17)
[2025-09-08] MEDS: BUSPAR PO (09:18)
[2025-09-08] MEDS: TOPROL XL PO (09:19)
[2025-09-08 09:28] LABS: Glycohemoglobin (HgbA1c) 6.1 % (4.0-5.9)
--- NOTE | 2025-09-08 09:47 | W.PN.HOSP.TC ---
Today's Communication/Plan
-
see plan
Assessment / Plan
Assessment / Plan
Gen: NAD, AAOx3.
Eyes: EOMI, PERRLA, no scleral icterus.
Neck: supple.
CV: RRR, +S1/S2, no m/r/g.
Resp: CTAB, no rales, wheezes, or rhonchi.
Abd: +BS, soft, NT, ND
Skin: No rashes.
MSK: R lower lateral point tenderness to palpation in ribs
Neuro: CN 2-12 intact, non-focal.
Psych: Normal mood and affect.
09/07/25 19:45 Nasal Swab Influenza Types A & B (RABIA) - Final
Negative for Influenza A & B, NAAT
Negative results must be combined with clinical observations
and patient history.
Nucleic Acid Amplification test (NAAT)performed on the
[employer] NOW platform
CT A/P without contrast: No renal, ureteral, or bladder calculus. No obstructive uropathy. Chronic perinephric soft tissue stranding, as described, unchanged. Mild bladder wall thickening. Subtle bladder wall trabeculation suggested near the
bladder dome. Diverticulosis without acute diverticulitis. No bowel obstruction. Mild colonic fecal burden. Multilevel discogenic and facet degenerative changes of the lumbar spine with associated central canal and foraminal stenosis. Bilateral hip
arthritis. Incidental extra articular synovial cyst projecting anterior and lateral to the right hip, slightly increased in size. Partially visualized mild left inguinal adenopathy. Likely reactive, though clinical correlation recommended.
Fever and R flank pain:
-U/A without evidence of infection
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
-no leukocytosis
-COVID/Flu NEG
-CT A/P above, unremarkable
-Rocephin given in the ER but not continued
-joint decision making with the pt, OK for d/c with close monitoring for recurrent fever/diaphoresis at home.
Other problems:
h/o L second toe osteomyelitis s/p amputation 12/04
PAF: cont BB/Eliquis
DM2 with diabetic neuropathy: a1c 6.1%, SSI/accuchecks, cont neurontin
Essential HTN: cont BB
Gout: cont allopurinol
FULL/Eliquis
Unexpected rapid recovery.
Total time spent on d/c = 38 min. This included today's physical exam, progress note, review of laboratory and diagnostic data, preparation of discharge documents and prescriptions, and discussions about the pt's hospital course and discharge plan
with the patient and other medical claims analyst involved in the patient's care.
Anticipated Discharge: Today
Subjective/Interval History
-
Date of Service: September 08, 2025
No new complaints. R lower rib pain is slightly better than yesterday.
Objective Data
-
Labs:
Laboratory Results
09/08/25
07:12
WBC 5.7
Hgb 12.5 L
Hct 37.8 L
Plt Count 205
Sodium 140
Potassium 4.2
Chloride 102
Carbon Dioxide 33 H
BUN 13
Creatinine 1.0
Glucose 119 H
Calcium 9.0
Total Bilirubin 0.2
AST 37
ALT 37
Alkaline Phosphatase 46
Vital Signs:
Vital Signs
Temp Pulse Resp BP Pulse Ox
97.4 F 55 18 121/59 99
09/08/25 07:30 09/08/25 07:30 09/08/25 07:30 09/08/25 07:30 09/08/25 07:30
I&O
09/07/25 09/08/25 09/09/25
06:59 06:59 06:59
Intake Total 480 / 480
Balance 480 / 480
[2025-09-08 11:25] VITALS: BP 127/60
[2025-09-08 11:43] LABS: Glucose - Point of Care 133 mg/dl (70-99)
[2025-09-08 15:34] VITALS: BP 124/67
[2025-09-08 16:43] LABS: Glucose - Point of Care 114 mg/dl (70-99)
== END 2025-09-08 19:49 | disposition home or self-care (01) | DRG 392 ==
LOC: 4 EAST ACU 17:52
PROVIDERS: Emergency Medicine; Student in an Organized Health Care Education/Training Program; ADMITTING PHYSICIAN Internal Medicine; ATTENDING PHYSICIAN Internal Medicine; EMERGENCY PHYSICIAN Student in an Organized Health Care Education/Training Program; FAMILY PHYSICIAN Family Medicine
DX: R10.A1 Flank pain, right side (principal); E11.40 Type 2 diabetes mellitus with diabetic neuropathy, unspecified; I10 Essential (primary) hypertension; Z79.01 Long term (current) use of anticoagulants; I48.0 Paroxysmal atrial fibrillation; K21.9 Gastro-esophageal reflux disease without esophagitis; Z90.49 Acquired absence of other specified parts of digestive tract; Z89.422 Acquired absence of other left toe(s); G47.00 Insomnia, unspecified; E78.5 Hyperlipidemia, unspecified; Z87.440 Personal history of urinary (tract) infections; Z11.52 Encounter for screening for COVID-19
CPT/HCPCS: 74176; 80053; 81003; 81015; 82962; 83036; 83690; 85025; 87040; 87502; 87811; 94660; 96374; 96375; 99284

== ENCOUNTER → 2025-09-17 08:56 | Outpatient (REF) | payer MEDICARE, OTHER, SELFPAY ==
[2025-09-17 11:21] LABS: Hematocrit 36.6 % (39.0-52.0); Hemoglobin 12.1 g/dL (13.0-18.0); Mean Corp Hgb Conc. 33.1 g/dL (33.0-37.0); Mean Corpuscular Volume 93.4 fL (80.0-94.0); Platelet Count 294 10^3/uL (130-400); Red Cell Dist. Width 13.0 % (11.5-14.5)
[2025-09-17 11:58] LABS: Blood Urea Nitrogen 22 mg/dl (9-20); Calcium 9.3 mg/dl (8.4-10.2); Carbon Dioxide 30 mmol/L (22-30); Chloride 100 mmol/L (98-107); Glucose 119 mg/dl (70-99); Potassium 4.2 mmol/L (3.5-5.1); Sodium 138 mmol/L (135-145); eGFR > 60.00
== END ==
LOC: SDSPAT 08:56
PROVIDERS: ATTENDING PHYSICIAN Orthopaedic Surgery Hand Surgery; FAMILY PHYSICIAN Family Medicine
DX: Z01.818 Encounter for other preprocedural examination (principal)
CPT/HCPCS: 36415; 80048; 85027

== ENCOUNTER 2025-09-22 11:01 | Emergency (ER) | payer MEDICARE, OTHER, SELFPAY ==
[2025-09-22 11:02] VITALS: BP 134/68
[2025-09-22 11:25] VITALS: BMI 33.5
--- NOTE | 2025-09-22 11:27 | ED.GENMED ---
History of Present Illness
General
Chief Complaint: Musculo-Skeletal Complaint
Time Seen by Provider: 09/22/25 11:27
History of Present Illness
History of Present Illness:
FOCUSED PAST MEDICAL HISTORY
- A-fib on Eliquis, high blood pressure, diverticular disease, diabetes no longer on insulin
REVIEW OF OLD RECORDS
- I reviewed records, the patient was admitted with reported fever and right flank pain and was initially started on Rocephin but not continued for the possibly of pyelonephritis.
Note:
CHIEF COMPLAINT(S)
Severe neck pain.
HISTORY OF PRESENT ILLNESS
The patient is a 70-year-old male who presents with severe left-sided neck pain. He describes the pain as originating at the base of his skull and extending down through his neck into his shoulder. This condition began suddenly after getting up in
the morning, and he attributes it to his neck pillow positioning. He has experienced similar episodes in the past, approximately a month or so ago, which were resolved with a lidocaine injection previously received at a medical facility.
The patient reports no history of direct trauma or falls and does not seem to benefit much from hydrocodone in managing his pain. On examination, the pain is localized, particularly when palpating the right-sided neck area, indicative of a possible
tension-type headache due to muscle strain.
The patient is currently on a blood thinner, specifically apixaban (Eliquis), which increases his risk of bleeding. Nonetheless, he agrees to try a trigger point injection again, which involves lidocaine and marcaine in a one-to-one ratio.
The patient is also considering trying a muscle relaxant, cyclobenzaprine (Flexeril), and was advised against using it concurrently with hydrocodone due to increased risk of sedation and other side effects.
MEDICATIONS
- Apixaban (Eliquis) for anticoagulation
- Prescription planned for Cyclobenzaprine (Flexeril) for muscle relaxation
REVIEW OF SYSTEMS
- Musculoskeletal: Severe neck pain radiating to the shoulder, inability to move the neck.
PHYSICAL EXAM
General: Alert, no acute distress.
Skin: Warm, dry.
Head: Normocephalic, atraumatic.
Neck: Tender in specific areas on the left side, indicating a possible muscle strain. Otherwise, supple and trachea midline. No midline C-spine tenderness. Markedly decreased active range of motion of the neck due to pain.
Eye Ears, nose, mouth and throat: Oral mucosa moist.
Cardiovascular: Normal peripheral perfusion, No edema.
Respiratory: Respirations are non-labored.
Gastrointestinal: Abdomen nondistended.
Back: Normal range of motion, Normal alignment.
Musculoskeletal: Pain upon palpation in the neck area with limited range of motion.
Neurological: Alert and oriented to person, place, time, and situation. No focal neurological deficit observed.
Psychiatric: Cooperative, appropriate mood & affect.
PROBLEM LIST
- Acute: Severe neck pain likely due to muscle strain.
PLAN
1. Administer trigger point injection with lidocaine and marcaine to manage acute neck pain.
2. Prescribe cyclobenzaprine (Flexeril) to aid in muscle relaxation, advising the patient not to mix with hydrocodone.
3. Instruct on the risks associated with the blood thinner, particularly emphasizing not to use non-steroidal anti-inflammatory drugs (NSAIDs).
4. Advise against driving while under the influence of cyclobenzaprine.
5. Arrange for follow-up if the symptoms do not improve or if any new symptoms arise.
DIFFERENTIAL DIAGNOSIS
The Differential Diagnosis includes, in no particular order and is not limited to:
1. Cervical muscle strain
2. Tension-type headache
3. Cervical spondylosis
4. Subacromial bursitis
5. Rotator cuff tendinopathy
6. Cervical radiculopathy
7. Herniated cervical disc
8. Myofascial pain syndrome
9. Degenerative disc disease
10. Cervical arthritis
Disposition:
SUMMARY OF ENCOUNTER
The patient, a 70-year-old male, presented with severe neck pain described as originating at the base of the skull and radiating to the shoulder. This episode was similar to previous instances that resolved with trigger point injections. He was
treated with a trigger point injection consisting of lidocaine and bupivacaine (Marcaine) in a one-to-one ratio to address the muscle strain tension. The patient is on apixaban, a blood thinner, and informed of the bleeding risks. Despite this, he
opted to proceed with the injection due to past success. A prescription for cyclobenzaprine (Flexeril) was given as a short course for muscle relaxation.
DISPOSITION
Discharge
ASSESSMENT
Acute severe neck pain likely due to muscle strain.
EMERGENCY TREATMENTS ADMINISTERED
A trigger point injection with lidocaine and bupivacaine (Marcaine) was administered to the musculature of the left side of the cervical spine.
PLAN
1. Continue monitoring symptoms and effectiveness of the treatment.
2. Cyclobenzaprine (Flexeril) prescribed to aid in muscle relaxation.
3. Avoid NSAIDs due to anticoagulation therapy and use acetaminophen if necessary.
4. Advise against mixing cyclobenzaprine with hydrocodone to avoid sedation risks.
5. Arrange follow-up if symptoms do not improve or new symptoms arise.
PATIENT EDUCATION AND COUNSELING
The patient was advised about the potential risks associated with the use of a blood thinner, specifically avoiding NSAIDs, and the side effects of taking cyclobenzaprine.
FOLLOW-UP INSTRUCTIONS
The patient should schedule a follow-up visit if symptoms do not improve or any new symptoms arise.
MEDICATION RECONCILIATION
1. Apixaban (for anticoagulation).
2. Prescribed cyclobenzaprine (Flexeril) for muscle relaxation.
MEDICAL DECISION MAKING
-Complexity of Data Reviewed: Chronic conditions affecting care include anticoagulation therapy due to the use of apixaban. Differential Diagnosis includes cervical muscle strain, tension-type headache, cervical spondylosis, and others.
-Data:
Category 1
Tests and documents reviewed: Not specified.
Category 2
Independent interpretation of patients symptoms without additional lab or imaging tests conducted during this visit.
-Risk:
Consideration of Admission/Observation: Escalation of care including admission/observation was considered given the complexity and risk of the patients presenting complaint, exam findings, and/or their underlying comorbidities. However, ultimately,
I feel the patient is safe for outpatient management with close follow-up. Reasoning: Work-up reassuring, does not reveal any acute life/organ threatening processes, patients symptoms well controlled upon reevaluation, reexamination is reassuring,
vitals are stable, patient agreeable with discharge, reliable for follow-up.
CRITICAL CARE TIME
None mentioned.
DIAGNOSIS
1. Cervical muscle strain (M62.830).
2. Acute neck pain (M54.2).
Past History
Past History
ED Past Medical History: Arrthythmia, GERD, HTN, NIDDM and Other (diverticulitis)
ED Past Surgical History: Appendectomy and Bowel resection (Sigmoid resection)
Patient has exhibited threatening behavior?: No
Social History
Tobacco: Non-smoker
Alcohol: Daily (Vodka 2-3 shots)
Drug: None
Personal:
Living: with family
Employment: Employed
Family History
Family History: Other (Nonsignificant)
Phy Exam
Physical Exam
Physical Exam:
See HPI
Course
Orders/Labs/Results
Orders:
Orders
09/22/25 11:49
Cyclobenzaprine HCl [Flexeril] 10 mg PO NOW STA
Vital Signs
Initial and Last Documented VS:
Initial Vital Signs
Temp Pulse Resp BP Pulse Ox
36.4 C 54 16 134/68 99
09/22/25 11:09/22/25 11:02 09/22/25 11:09/22/25 11:09/22/25 11:02
Last Documented Vital Signs
Temp Pulse Resp BP Pulse Ox
36.4 C 54 16 134/68 99
09/22/25 11:09/22/25 11:02 09/22/25 11:02 09/22/25 11:02 09/22/25 11:33
Procedures
Other
Indication for procedure:: Trigger point injection, severe pain
Procedure completed by: Wy, Dr. Duvall
Consent form signed: No
Additional Procedure:
I placed 4 mL of a one-to-one mixture of lidocaine 1% and Marcaine. This was injected into the musculature the posterolateral aspect of the left side of his neck without any difficulty, no bleeding.
*Pulse Oximetry
SaO2: 99
Oxygen Mode of Delivery: Room air
Patient hypoxic: no
*Critical Care Note
Total Time (30-74mins, 75-104mins- exclusive of procedures): Not Applicable
ED Attending Note
-
Portions of this chart may have been created with voice recognition software.� Occasional wrong word or��sound alike� substitutions may have occurred due to the inherent limitations of voice recognition software.
Discharge Plan
Departure
Patient Disposition: Home (Routine Discharge)
Date of Disposition: 09/22/25
Time of Disposition: 11:52
Patient with high blood pressure during this ER visit?: Yes
Discharge Problem:
Muscle spasm
Instructions: Muscle Strain (DC), BLOOD PRESSURE
Prescriptions:
New
cyclobenzaprine 10 mg tablet
10 mg PO DAILY PRN (Reason: pain) Qty: 7 0RF
No Action
desloratadine [Clarinex] 5 MG tablet
5 mg PO DAILY
One Daily Men's 50 Plus Memory 1 EACH tablet
1 tab PO DAILY
allopurinol 100 MG tablet
100 mg PO DAILY
metoprolol succinate 100 MG tablet extended release 24 hr
50 mg PO BID
Prevagen
1 cap PO DAILY
Eliquis 5 MG tablet
5 mg PO BID
cyanocobalamin (vitamin B-12) 1,000 mcg Tablet
1,000 mcg PO BID
gabapentin 100 mg Capsule
600 mg PO BID
rosuvastatin 10 mg tablet
10 mg PO DAILY
Sinex Regular 0.5 % [place],Non-Aerosol
1 spray INTRANASAL ONCE
buspirone 5 mg Tablet
5 mg PO BID
Belsomra 10 mg Tablet
10 mg PO HS
hydrocodone-acetaminophen 5-325 mg Tablet
1 tab PO Q8H PRN (Reason: Chronic Pain)
Referrals:
Radu Rodgers, [Family Provider, Family Practice]
Activity Restrictions/Additional Instructions:
I gave an injection of lidocaine with Marcaine into the affected area. Follow-up with your orthopedist as well. Flexeril is generally not recommended above the age of 65 however we can give you a prescription for a very short course using only
once per day. Do not take if you take hydrocodone as well and do not drive if you take this medication.
Interventions
Interventions:
*Risk Screen - Suicide Last Done: 09/22/25 11:25
*General Assessment Last Done: 09/22/25 11:25
*Neglect/Abuse Screening Last Done: 09/22/25 11:25
*ED- Fall Risk Assessment Last Done: 09/22/25 11:25
*ED COVID-19 Vaccine History Last Done: 09/22/25 11:25
*ED Influenza Vaccine History Last Done: 09/22/25 11:25
ED-Musculoskeletal Assessment Last Done: 09/22/25 11:25
Discharge Date and Time
Print Language: GREEK
[2025-09-22] MEDS: FLEXERIL 10 MG PO (11:59)
== END 2025-09-22 12:07 | disposition home or self-care (01) ==
LOC: EMR 11:01
PROVIDERS: EMERGENCY PHYSICIAN Emergency Medicine; FAMILY PHYSICIAN Family Medicine
DX: M62.838 Other muscle spasm (principal); S16.1XXA Strain of muscle, fascia and tendon at neck level, initial encounter; X58.XXXA Exposure to other specified factors, initial encounter; I48.91 Unspecified atrial fibrillation; I10 Essential (primary) hypertension; E11.9 Type 2 diabetes mellitus without complications; Z79.01 Long term (current) use of anticoagulants
CPT/HCPCS: 20552; 99284

== ENCOUNTER 2025-09-23 17:05 | Emergency (ER) | payer MEDICARE, OTHER, SELFPAY ==
[2025-09-23 17:07] VITALS: BP 138/79
[2025-09-23] MEDS: VALIUM INJECTION 5 MG IV (17:44)
[2025-09-23] MEDS: DECADRON 10 MG IV (17:44)
--- NOTE | 2025-09-23 18:06 | ED.MUSCINJ ---
HPI-Injury
General
Chief Complaint: Musculo-Skeletal Complaint
Source: patient
Exam Limitations: none
Time Seen by Provider: 09/23/25 17:16
History of Present Illness-Injury
Initial Injury comments:
70-year-old male presents complaining of severe right sided neck pain. He was here yesterday for similar pain on the left side. He is on Eliquis. He states the pain is improved on the left but now the pain is worse on the right. He can move his
head without any pain. He denies any associated dizziness or vision change. No arm numbness or weakness. No associated chest pain or shortness of breath. He denies any fever or rash. No other complaint
Past History
Past History
ED Past Medical History: Arrthythmia, GERD, HTN, NIDDM and Other (diverticulitis)
ED Past Surgical History: Appendectomy and Bowel resection (Sigmoid resection)
Patient has exhibited threatening behavior?: No
Social History
Tobacco: Non-smoker
Alcohol: Daily (Vodka 2-3 shots)
Drug: None
Personal:
Living: with family
Employment: Employed
Family History
Family History: Other (Nonsignificant)
Phy Exam
Physical Exam
Physical Exam:
General: Well-appearing male no acute respiratory distress
HEENT normal cephalic atraumatic neck is supple TMs normal no adenopathy patient is tender over the paraspinous area mainly on the right side but some on the left from the occiput down to the superior shoulder
Skin is intact without a rash
Musculoskeletal exam: Significant decreased range of motion of neck secondary to pain
Neurologic exam: Alert and oriented good sensation and strength to lower extremities
Injury Course
Orders/Labs/Results
Orders:
Orders
09/23/25 17:30
Dexamethasone Sod Phosphate [Decadron] 10 mg IV NOW STA
diazePAM [Valium Injection] 5 mg IV NOW STA
09/23/25 17:35
CT Neck W/o Iv Contrast Urgent
Comment:
Reason For Exam: neck pain
MDM/Problems Addressed
Differential Diagnosis Includes:
Severe neck pain. Consider muscular strain versus less likely deep space infection or abscess or hematoma. CT ordered. Patient has an IV dye allergy so we will do this without IV dye as his allergy is significant. Will try to treat
symptomatically with Valium and Decadron.
*Pulse Oximetry
SaO2: 98
Oxygen Mode of Delivery: Room air
Patient hypoxic: no
*Critical Care Note
Total Time (30-74mins, 75-104mins- exclusive of procedures): Not Applicable
Update Note
Update Note:
CT of neck shows degenerative changes throughout the spine but no obvious mass or collection. Patient did have some relief with IV Valium and Decadron. I suspect cervical strain will change his muscle relaxer to Valium and add prednisone. Stable
for discharge
ED Attending Note
-
Portions of this chart may have been created with voice recognition software.� Occasional wrong word or��sound alike� substitutions may have occurred due to the inherent limitations of voice recognition software.
Discharge Plan
Departure
Patient Disposition: Home (Routine Discharge)
Date of Disposition: 09/23/25
Time of Disposition: 19:21
Patient with high blood pressure during this ER visit?: No
Discharge Problem:
Cervical strain, acute
Instructions: Muscle and Bone Pain (DC)
Prescriptions:
New
diazepam [Valium] 5 mg tablet
5 mg PO BID PRN (Reason: muscle spasm) Qty: 10 0RF
prednisone 10 mg Tablet
See Rx Instructions .ROUTE .COMPLEX Qty: 30 0RF
Rx Instructions:
Take By Mouth:
40 mg daily x3 days, 30 mg daily x3 days,
20 mg daily x3 days, 10 mg daily x3 days.
No Action
desloratadine [Clarinex] 5 MG tablet
5 mg PO DAILY
One Daily Men's 50 Plus Memory 1 EACH tablet
1 tab PO DAILY
allopurinol 100 MG tablet
100 mg PO DAILY
metoprolol succinate 100 MG tablet extended release 24 hr
50 mg PO BID
Prevagen
1 cap PO DAILY
Eliquis 5 MG tablet
5 mg PO BID
cyanocobalamin (vitamin B-12) 1,000 mcg Tablet
1,000 mcg PO BID
gabapentin 100 mg Capsule
600 mg PO BID
rosuvastatin 10 mg tablet
10 mg PO DAILY
Sinex Regular 0.5 % [place],Non-Aerosol
1 spray INTRANASAL ONCE
buspirone 5 mg Tablet
5 mg PO BID
Belsomra 10 mg Tablet
10 mg PO HS
hydrocodone-acetaminophen 5-325 mg Tablet
1 tab PO Q8H PRN (Reason: Chronic Pain)
cyclobenzaprine 10 mg tablet
10 mg PO DAILY PRN (Reason: pain) Qty: 7 0RF
Referrals:
Radu Rodgers, DO [Family Provider, Family Practice]
Activity Restrictions/Additional Instructions:
Continue topical lidocaine and warm compresses to the neck. Use muscle relaxer and steroid as directed. Follow-up with your orthopedic doctor
Interventions
Interventions:
*Risk Screen - Suicide Last Done: 09/23/25 17:07
*General Assessment Last Done: 09/23/25 17:15
*Neglect/Abuse Screening Last Done: 09/23/25 17:15
*ED- Fall Risk Assessment Last Done: 09/23/25 17:15
ED-Musculoskeletal Assessment Last Done: 09/23/25 17:15
Discharge Date and Time
Print Language: FILIPINO
[2025-09-23] MEDS: VALIUM 5 MG PO (19:31)
[2025-09-23 19:42] VITALS: BP 135/75
== END 2025-09-23 19:44 | disposition home or self-care (01) ==
LOC: EMR 17:05
PROVIDERS: EMERGENCY PHYSICIAN Emergency Medicine; FAMILY PHYSICIAN Family Medicine
DX: S16.1XXA Strain of muscle, fascia and tendon at neck level, initial encounter (principal); I10 Essential (primary) hypertension; E11.9 Type 2 diabetes mellitus without complications; Z90.49 Acquired absence of other specified parts of digestive tract; Z79.01 Long term (current) use of anticoagulants
CPT/HCPCS: 96374; 96375; 99284; 70490

== ENCOUNTER 2025-09-29 06:28 | Day surgery (SDC) | payer MEDICARE, OTHER, SELFPAY ==
[2025-09-17 13:53] VITALS: BMI 33.0
[2025-09-29] VITALS (10 sets, daily range): BP systolic 117–141; BP diastolic 53–97; BMI 33.0
[2025-09-29] MEDS: NORMOSOL-R/PLASMALYTE-A 1000 IV (10:30)
[2025-09-29] MEDS: CELEBREX 200 MG PO (10:30)
[2025-09-29] MEDS: TYLENOL 1000 MG PO (10:31)
[2025-09-29] MEDS: DILAUDID 0.25 MG IV ×3 (12:47→13:13)
[2025-09-29] MEDS: ROXICODONE 10 MG PO (14:41)
== END 2025-09-29 15:25 | disposition home or self-care (01) ==
LOC: SDS 06:28
PROVIDERS: ATTENDING PHYSICIAN Orthopaedic Surgery Hand Surgery; FAMILY PHYSICIAN Family Medicine
DX: M75.121 Complete rotator cuff tear or rupture of right shoulder, not specified as traumatic (principal); M75.41 Impingement syndrome of right shoulder; M19.011 Primary osteoarthritis, right shoulder
CPT/HCPCS: 29827; 29826; C1713

== ENCOUNTER → 2025-10-26 14:46 | Outpatient (REF) | payer MEDICARE, OTHER, SELFPAY | LOC: HWRAD 14:46 | PROVIDERS: ATTENDING PHYSICIAN Podiatrist; FAMILY PHYSICIAN Family Medicine | DX: D49.2 Neoplasm of unspecified behavior of bone, soft tissue, and skin (principal); R22.41 Localized swelling, mass and lump, right lower limb | CPT/HCPCS: 76882 ==

== ENCOUNTER → 2025-11-02 16:14 | Outpatient (REF) | payer MEDICARE, OTHER, SELFPAY | LOC: PAVMRI 16:14 | PROVIDERS: ATTENDING PHYSICIAN Pain Medicine Interventional Pain Medicine; FAMILY PHYSICIAN Family Medicine | DX: M54.12 Radiculopathy, cervical region (principal) | CPT/HCPCS: 72141 ==